=== PATIENT | female | born 1940 | race American Indian/Alaskan Native ===

== ENCOUNTER 2018-10-11 09:35 | Outpatient (CLI) | payer MEDICARE ==
--- NOTE | 2018-10-11 11:14 | Magnetic Resonance Report ---
MRI BRAIN WITHOUT CONTRAST INDICATION: Memory loss. COMPARISON: 04/20/[address] FINDINGS: Noncontrast multiplanar and multisequence MRI of the brain demonstrates normal ventricles and sulci without acute infarct, hemorrhage, mass effect or midline shift. Mild periventricular FLAIR and T2 weighted hyperintensities. No abnormal extra-axial masses or fluid collections. Normal major intracranial vascular flow voids. Normal posterior fossa structures with symmetric seventh and eighth nerve complexes. Symmetric, grossly unremarkable eye globes. Leftward nasal septal deviation. Clear imaged paranasal sinuses and mastoid air cells. Normal midline structures without evidence of Chiari malformation. Approximately 2 x 1.4 cm adenoids may be directly visualized. CONCLUSION: No acute intracranial MRI abnormality with few incidental findings, as described. Thank you for the opportunity to participate in this patient's care.
== END 2018-10-11 09:36 | disposition home or self-care (01) ==
LOC: MRI 09:35
PROVIDERS: ATTEND Psychiatry & Neurology Neurology
DX: G30.1 Alzheimer's disease with late onset (principal); I10 Essential (primary) hypertension; J45.909 Unspecified asthma, uncomplicated; Z90.710 Acquired absence of both cervix and uterus
CPT/HCPCS: 70551

== ENCOUNTER 2018-12-01 20:58 | Emergency (ER) | payer MEDICARE ==
--- NOTE | 2018-12-01 21:41 | Event Note ---
ED Screening Note Date of service: 12/01/18 Time: 21:38 ED Screening Note: 78 y/o female comes in for AMS. Patient is feel paranoid. This initial assessment/diagnostic orders/clinical plan/treatment(s) is/are subject to change based on patients health status, clinical progression and re-assessment by fellow clinical providers in the ED. Further treatment and workup at subsequent clinical providers discretion. Patient/guardian urged not to elope from the ED as their condition may be serious if not clinically assessed and managed. Initial orders include:
[2018-12-01 21:49] LABS: Basophils # (Auto) 0.1 K/mm3 (0.0-0.1); Basophils % (Auto) 1.1 % (0.0-1.8); Eosinophils # (Auto) 0.2 K/mm3 (0.0-0.4); Eosinophils % (Auto) 2.8 % (0.0-4.3); Hematocrit 34.4 % (30.3-42.9); Mean Corpuscular HGB Conc 35 % (30-34); Mean Corpuscular Volume 96 fl (79-97); Monocytes # (Auto) 0.7 K/mm3 (0.0-0.8); Monocytes % (Auto) 8.3 % (0.0-7.3); Platelet Count 251 K/mm3 (140-440); Red Blood Count 3.59 M/mm3 (3.65-5.03); Red Cell Distribution Width 14.7 % (13.2-15.2)
[2018-12-01 22:08] LABS: BUN/Creatinine Ratio 31; Blood Urea Nitrogen 28 mg/dL (7-17); Calcium 9.3 mg/dL (8.4-10.2); Hemolysis Index 10
[2018-12-01 22:29] LABS: Alanine Aminotransferase 14 units/L (7-56); Albumin 3.7 g/dL (3.9-5)
[2018-12-01 22:38] LABS: Bilirubin,Direct < 0.2 mg/dL (0-0.2)
[2018-12-01 23:31] LABS: Bilirubin,Urine NEG (Negative); Blood,Urine NEG (Negative); Color,Urine Yellow (Yellow); Hyaline Casts,Urine 2 /LPF; Mucus,Urine FEW /HPF; Protein,Urine <15 mg/dL mg/dL (Negative); Urobilinogen,Urine < 2.0 mg/dL (<2.0)
--- NOTE | 2018-12-02 01:00 | Emergency Department Report ---
ED General Adult HPI - General Chief complaint: Altered Mental Status Stated complaint: BACK PAIN, HAVING DELUSIONS Time Seen by Provider: 12/01/18 21:38 Source: family Mode of arrival: Wheelchair Limitations: Altered Mental Status, Physical Limitation - History of Present Illness Initial comments: 78 y.o. female with a history of CVA, HTN, Obesity, and atrial fibrillation presents with complaint of delusions. Family states that the patient has had the delusion that someone is inside and outside her house for the past 3 months. Patient has seen a neurologist regarding this. Today however patient was cursing and was more agitated. Vision lives by herself and sister was at [employer] and pick patient up and brought her to the emergency department for evaluation. Patient has had no fever or recent falls. Patient has had no slurred speech or focal weakness described by the family or by the patient. The patient denies any chest pain or shortness of breath at current time. - Related Data Previous Rx's Medication Instructions Recorded Last Taken Type predniSONE [Deltasone] 20 mg PO QDAY #3 tab 11/21/14 Unknown Rx Acyclovir [Zovirax Tab] 400 mg PO QID #20 tab 04/20/15 Unknown Rx Apixaban [Eliquis] 5 mg PO BID #60 tablet 09/15/17 Unknown Rx Lisinopril/Hydrochlorothiazide 1 each PO QDAY #30 tablet 09/15/17 Unknown Rx [Zestoretic 20-12.5 mg] Metoprolol [Lopressor TAB] 25 mg PO BID #60 tablet 09/15/17 Unknown Rx Ciprofloxacin HCl [Ciprofloxacin 500 mg PO Q12HR 7 Days tab 12/02/18 Unknown Rx TAB] LORazepam [Ativan] 1 mg PO TID PRN #14 tablet 12/02/18 Unknown Rx Allergies Allergy/AdvReac Type Severity Reaction Status Date / Time aspirin AdvReac Unknown Verified 11/21/14 11:18 FLU VACCINE AdvReac Unknown Uncoded 04/20/15 13:35 ED Review of Systems ROS: Stated complaint: BACK PAIN, HAVING DELUSIONS Other details as noted in HPI Constitutional: denies: chills, fever Eyes: denies: eye pain, eye discharge, vision change ENT: denies: ear pain, throat pain Respiratory: denies: cough, shortness of breath, wheezing Cardiovascular: denies: chest pain, palpitations Endocrine: no symptoms reported Gastrointestinal: denies: abdominal pain, nausea, diarrhea Genitourinary: denies: urgency, dysuria, discharge Musculoskeletal: denies: back pain, joint swelling, arthralgia Skin: denies: rash, lesions Neurological: denies: headache, weakness, paresthesias Psychiatric: denies: anxiety, depression Hematological/Lymphatic: denies: easy bleeding, easy bruising ED Past Medical Hx - Past Medical History Previous Medical History?: Yes Hx Hypertension: Yes Hx CVA: Yes Hx Diabetes: Yes Hx Asthma: Yes Hx Dementia: Yes Hx HIV: No - Surgical History Past Surgical History?: Yes Hx Cholecystectomy: Yes Additional Surgical History: tonsilectomy - Social History Smoking Status: Never Smoker Substance Use Type: None - Medications Home Medications: Home Medications Medication Instructions Recorded Confirmed Last Taken Type predniSONE [Deltasone] 20 mg PO QDAY #3 tab 11/21/14 Unknown Rx Acyclovir [Zovirax Tab] 400 mg PO QID #20 tab 04/20/15 Unknown Rx Apixaban [Eliquis] 5 mg PO BID #60 tablet 09/15/17 Unknown Rx Lisinopril/Hydrochlorothiazide 1 each PO QDAY #30 tablet 09/15/17 Unknown Rx [Zestoretic 20-12.5 mg] Metoprolol [Lopressor TAB] 25 mg PO BID #60 tablet 09/15/17 Unknown Rx Ciprofloxacin HCl [Ciprofloxacin 500 mg PO Q12HR 7 Days tab 12/02/18 Unknown Rx TAB] LORazepam [Ativan] 1 mg PO TID PRN #14 tablet 12/02/18 Unknown Rx ED Physical Exam - General Limitations: Altered Mental Status, Physical Limitation General appearance: alert, in no apparent distress - Head Head exam: Present: atraumatic, normocephalic - Eye Eye exam: Present: normal appearance - ENT ENT exam: Present: mucous membranes moist - Neck Neck exam: Present: normal inspection - Respiratory Respiratory exam: Present: normal lung sounds bilaterally. Absent: respiratory distress - Cardiovascular Cardiovascular Exam: Present: regular rate, normal rhythm. Absent: systolic murmur, diastolic murmur, rubs, gallop - GI/Abdominal GI/Abdominal exam: Present: soft, normal bowel sounds - Extremities Exam Extremities exam: Present: normal inspection - Back Exam Back exam: Present: normal inspection - Neurological Exam Neurological exam: Present: alert, CN II-XII intact, other (Oriented to person place but not to time. ( THis is patient's baseline per family)). Absent: motor sensory deficit - Psychiatric Psychiatric exam: Present: normal affect, normal mood - Skin Skin exam: Present: warm, dry, intact, normal color. Absent: rash ED Course Vital Signs 12/01/18 12/01/18 12/01/18 21:07 21:16 21:29 Temperature 98.6 F Pulse Rate 84 89 Respiratory 18 19 18 Rate Blood Pressure 147/62 147/62 113/64 O2 Sat by Pulse 98 100 97 Oximetry 12/01/18 12/01/18 12/01/18 21:30 21:46 22:00 Temperature Pulse Rate 82 102 H Respiratory 21 23 20 Rate Blood Pressure 150/53 142/53 142/53 O2 Sat by Pulse 100 97 99 Oximetry 12/01/18 12/01/18 12/01/18 22:16 22:30 22:46 Temperature Pulse Rate 92 H 99 H 98 H Respiratory 22 24 27 H Rate Blood Pressure 122/48 102/45 124/42 O2 Sat by Pulse 100 100 100 Oximetry 12/01/18 12/01/18 12/01/18 23:00 23:16 23:30 Temperature Pulse Rate 94 H 101 H 104 H Respiratory 22 19 22 Rate Blood Pressure 124/42 131/39 133/36 O2 Sat by Pulse 100 99 96 Oximetry 12/01/18 12/02/18 12/02/18 23:46 00:00 01:09 Temperature Pulse Rate 105 H 105 H Respiratory 22 22 Rate Blood Pressure 130/37 130/37 98/55 O2 Sat by Pulse 96 97 Oximetry 12/02/18 12/02/18 12/02/18 01:15 01:31 01:45 Temperature Pulse Rate Respiratory Rate Blood Pressure 98/55 108/60 106/57 O2 Sat by Pulse 97 99 98 Oximetry ED Medical Decision Making - Lab Data Result diagrams: 12/01/18 Unknown 12/01/18 21:36 - Medical Decision Making Patient is in no acute distress. Patient received a dose of Ativan while here in the emergency department and will receive this therapy to assist with her episodes on outpatient basis. Patient has a normal neurologic exam will be di scharged. Patient noted to have a mild UTI and will be discharged with ciprofloxacin therapy as well. - Differential Diagnosis UTI; Dehydration; Electrolyte Abnormality; Anemia; Critical care attestation.: If time is entered above; I have spent that time in minutes in the direct care of this critically ill patient, excluding procedure time. ED Disposition Clinical Impression: Dementia, Urinary tract infection, Hypertension Disposition: TO HOME OR SELFCARE Is pt being admited?: No Does the pt Need Aspirin: No Condition: Stable Instructions: Hypertension (ED), Dementia (ED), Urinary Tract Infection in Women (ED) Prescriptions: LORazepam [Ativan] 1 mg PO TID PRN #14 tablet PRN Reason: Agitation Ciprofloxacin HCl [Ciprofloxacin TAB] 500 mg PO Q12HR 7 Days tab Time of Disposition: 02:21 Print Language: [place]
[2018-12-02] MEDS ORDERED: ATIVAN PO ONE (01:20)
[2018-12-02 01:50] VITALS: BP 106/57
== END 2018-12-02 03:15 | disposition home or self-care (01) ==
LOC: ED 20:58
DX: F03.90 Unspecified dementia, unspecified severity, without behavioral disturbance, psychotic disturbance, mood disturbance, and anxiety (principal); N39.0 Urinary tract infection, site not specified; I10 Essential (primary) hypertension; I25.2 Old myocardial infarction; E11.9 Type 2 diabetes mellitus without complications; J45.909 Unspecified asthma, uncomplicated; Z90.49 Acquired absence of other specified parts of digestive tract; Z90.89 Acquired absence of other organs; Z79.899 Other long term (current) drug therapy; Z88.6 Allergy status to analgesic agent; Z91.09 Other allergy status, other than to drugs and biological substances
CPT/HCPCS: 36415; 80048; 80076; 81001; 85025

== ENCOUNTER 2018-12-30 10:01 | Emergency (ER) | payer MEDICARE ==
--- NOTE | 2018-12-30 11:09 | Event Note ---
ED Screening Note ED Screening Note: lower back pain since yesterday seems slightly more confused per pt family Dr. Kaye Kelly, PCP advised to be seen in the ED no fall or injury +urinary frequency/urinary urgency no V/D, fever, unexplained weight loss, no CP This initial assessment/diagnostic orders/clinical plan/treatment(s) is/are subject to change based on patients health status, clinical progression and re- assessment by fellow clinical providers in the ED. Further treatment and workup at subsequent clinical providers discretion. Patient/guardian urged not to elope from the ED as their condition may be serious if not clinically assessed and managed. Initial orders include: UA, labs
[2018-12-30 11:34] LABS: Basophils # (Auto) 0.1 K/mm3 (0.0-0.1); Basophils % (Auto) 0.9 % (0.0-1.8); Eosinophils # (Auto) 0.3 K/mm3 (0.0-0.4); Eosinophils % (Auto) 4.5 % (0.0-4.3); Hematocrit 34.2 % (30.3-42.9); Hemoglobin 11.4 gm/dl (10.1-14.3); Lymphocytes # (Auto) 1.4 K/mm3 (1.2-5.4); Lymphocytes % (Auto) 22.5 % (13.4-35.0); Mean Corpuscular HGB Conc 33 % (30-34); Mean Corpuscular Volume 99 fl (79-97); Monocytes # (Auto) 0.6 K/mm3 (0.0-0.8); Monocytes % (Auto) 8.9 % (0.0-7.3); Platelet Count 227 K/mm3 (140-440); Red Blood Count 3.47 M/mm3 (3.65-5.03); Red Cell Distribution Width 15.2 % (13.2-15.2)
[2018-12-30 11:57] LABS: Alanine Aminotransferase 14 units/L (7-56); BUN/Creatinine Ratio 24; Blood Urea Nitrogen 17 mg/dL (7-17); Calcium 9.2 mg/dL (8.4-10.2); Hemolysis Index 3
[2018-12-30 11:59] LABS: Bacteria,Urine 1+ /HPF (Negative); Bilirubin,Urine NEG (Negative); Blood,Urine NEG (Negative); Color,Urine Yellow (Yellow); Mucus,Urine 2+ /HPF; Protein,Urine <15 mg/dL mg/dL (Negative); Urobilinogen,Urine < 2.0 mg/dL (<2.0)
[2018-12-30] MEDS ORDERED: BACTRIM DS PO ONE (18:22)
[2018-12-30] MEDS ORDERED: TYLENOL/CODEINE PO ONE (18:22)
--- NOTE | 2018-12-30 18:30 | Emergency Department Report ---
ED General Adult HPI - General Chief complaint: Back Pain/Injury Stated complaint: BACK PAIN Time Seen by Provider: 12/30/18 11:06 Source: patient, family Mode of arrival: Wheelchair Limitations: No Limitations - History of Present Illness Initial comments: This is a 78-year-old female who presents to ED sister who is complaining of low back pain for the past couple days. Patient states that she did not fall or sustain any trauma or injuries. Patient denies fevers chills/shortness of breath/nausea vomiting/abdominal pain or dysuria. Patient's family member requesting resources for help with dementia. Family members stated that patient had a dementia episode yesterday. As of today patient had not had any episodes and is acting her normal self. - Related Data Previous Rx's Medication Instructions Recorded Last Taken Type predniSONE [Deltasone] 20 mg PO QDAY #3 tab 11/21/14 Unknown Rx Acyclovir [Zovirax Tab] 400 mg PO QID #20 tab 04/20/15 Unknown Rx Apixaban [Eliquis] 5 mg PO BID #60 tablet 09/15/17 Unknown Rx Lisinopril/Hydrochlorothiazide 1 each PO QDAY #30 tablet 09/15/17 Unknown Rx [Zestoretic 20-12.5 mg] Metoprolol [Lopressor TAB] 25 mg PO BID #60 tablet 09/15/17 Unknown Rx Ciprofloxacin HCl [Ciprofloxacin 500 mg PO Q12HR 7 Days tab 12/02/18 Unknown Rx TAB] LORazepam [Ativan] 1 mg PO TID PRN #14 tablet 12/02/18 Unknown Rx Acetaminophen [Tylenol] 325 mg PO Q6H #20 capsule 12/30/18 Unknown Rx Sulfamethoxazole/Trimethoprim 1 each PO BID #14 tablet 12/30/18 Unknown Rx [Bactrim DS TAB] Allergies Allergy/AdvReac Type Severity Reaction Status Date / Time aspirin AdvReac Unknown Verified 11/21/14 11:18 FLU VACCINE AdvReac Unknown Uncoded 04/20/15 13:35 ED Review of Systems ROS: Stated complaint: BACK PAIN Other details as noted in HPI Comment: All other systems reviewed and negative ED Past Medical Hx - Past Medical History Previous Medical History?: Yes Hx Hypertension: Yes Hx CVA: Yes Hx Diabetes: Yes Hx Asthma: Yes Hx Dementia: Yes Hx HIV: No - Surgical History Past Surgical History?: Yes Hx Cholecystectomy: Yes Additional Surgical History: tonsilectomy - Social History Smoking Status: Never Smoker - Medications Home Medications: Home Medications Medication Instructions Recorded Confirmed Last Taken Type predniSONE [Deltasone] 20 mg PO QDAY #3 tab 11/21/14 Unknown Rx Acyclovir [Zovirax Tab] 400 mg PO QID #20 tab 04/20/15 Unknown Rx Apixaban [Eliquis] 5 mg PO BID #60 tablet 09/15/17 Unknown Rx Lisinopril/Hydrochlorothiazide 1 each PO QDAY #30 tablet 09/15/17 Unknown Rx [Zestoretic 20-12.5 mg] Metoprolol [Lopressor TAB] 25 mg PO BID #60 tablet 09/15/17 Unknown Rx Ciprofloxacin HCl [Ciprofloxacin 500 mg PO Q12HR 7 Days tab 12/02/18 Unknown Rx TAB] LORazepam [Ativan] 1 mg PO TID PRN #14 tablet 12/02/18 Unknown Rx Acetaminophen [Tylenol] 325 mg PO Q6H #20 capsule 12/30/18 Unknown Rx Sulfamethoxazole/Trimethoprim 1 each PO BID #14 tablet 12/30/18 Unknown Rx [Bactrim DS TAB] ED Physical Exam - General Limitations: No Limitations General appearance: alert, in no apparent distress - Head Head exam: Present: atraumatic, normocephalic - Eye Eye exam: Present: normal appearance - ENT ENT exam: Present: mucous membranes moist - Neck Neck exam: Present: normal inspection - Respiratory Respiratory exam: Present: normal lung sounds bilaterally. Absent: respiratory distress - Cardiovascular Cardiovascular Exam: Present: regular rate, normal rhythm. Absent: systolic murmur, diastolic murmur, rubs, gallop - GI/Abdominal GI/Abdominal exam: Present: soft, normal bowel sounds. Absent: distended, tenderness, guarding, rebound - Extremities Exam Extremities exam: Present: normal inspection, full ROM. Absent: tenderness - Back Exam Back exam: Present: normal inspection, full ROM. Absent: tenderness, CVA tenderness (R), CVA tenderness (L) - Neurological Exam Neurological exam: Present: alert, oriented X3 - Psychiatric Psychiatric exam: Present: normal affect, normal mood - Skin Skin exam: Present: warm, dry, intact, normal color. Absent: rash ED Course Vital Signs 12/30/18 11:06 Temperature 98.3 F Pulse Rate 70 Respiratory 20 Rate Blood Pressure 120/63 O2 Sat by Pulse 100 Oximetry ED Medical Decision Making - Lab Data Result diagrams: 12/30/18 11:19 12/30/18 11:19 Laboratory Last Values WBC 6.3 K/mm3 (4.5-11.0) 12/30/18 11:19 RBC 3.47 M/mm3 (3.65-5.03) L 12/30/18 11:19 Hgb 11.4 gm/dl (10.1-14.3) 12/30/18 11:19 Hct 34.2 % (30.3-42.9) 12/30/18 11:19 MCV 99 fl (79-97) H 12/30/18 11:19 MCH 33 pg (28-32) H 12/30/18 11:19 MCHC 33 % (30-34) 12/30/18 11:19 RDW 15.2 % (13.2-15.2) 12/30/18 11:19 Plt Count 227 K/mm3 (140-440) 12/30/18 11:19 Lymph % (Auto) 22.5 % (13.4-35.0) 12/30/18 11:19 [place] % (Auto) 8.9 % (0.0-7.3) H 12/30/18 11:19 Eos % (Auto) 4.5 % (0.0-4.3) H 12/30/18 11:19 Baso % (Auto) 0.9 % (0.0-1.8) 12/30/18 11:19 Lymph # 1.4 K/mm3 (1.2-5.4) 12/30/18 11:19 [place] # 0.6 K/mm3 (0.0-0.8) 12/30/18 11:19 Eos # 0.3 K/mm3 (0.0-0.4) 12/30/18 11:19 Baso # 0.1 K/mm3 (0.0-0.1) 12/30/18 11:19 Seg Neutrophils % 63.2 % (40.0-70.0) 12/30/18 11:19 Seg Neutrophils # 4.0 K/mm3 (1.8-7.7) 12/30/18 11:19 Sodium 145 mmol/L (137-145) 12/30/18 11:19 Potassium 4.2 mmol/L (3.6-5.0) 12/30/18 11:19 Chloride 105.2 mmol/L (98-107) 12/30/18 11:19 Carbon Dioxide 29 mmol/L (22-30) 12/30/18 11:19 15 mmol/L 12/30/18 11:19 BUN 17 mg/dL (7-17) 12/30/18 11:19 0.7 mg/dL (0.7-1.2) 12/30/18 11:19 Estimated GFR > 60 ml/min 12/30/18 11:19 24 % 12/30/18 11:19 Glucose 129 mg/dL (65-100) H 12/30/18 11:19 Calcium 9.2 mg/dL (8.4-10.2) 12/30/18 11:19 0.50 mg/dL (0.1-1.2) 12/30/18 11:19 AST 15 units/L (5-40) 12/30/18 11:19 ALT 14 units/L (7-56) 12/30/18 11:19 75 units/L (35-129) 12/30/18 11:19 7.2 g/dL (6.3-8.2) 12/30/18 11:19 4.0 g/dL (3.9-5) 12/30/18 11:19 1.3 % 12/30/18 11:19 Yellow (Yellow) 12/30/18 11:24 Slightly-cloudy (Clear) 12/30/18 11:24 5.0 (5.0-7.0) 12/30/18 11:24 Ur Specific [place] 1.021 (1.003-1.030) 12/30/18 11:24 <15 mg/dl mg/dL (Negative) 12/30/18 11:24 Neg mg/dL (Negative) 12/30/18 11:24 Neg mg/dL (Negative) 12/30/18 11:24 Neg (Negative) 12/30/18 11:24 Neg (Negative) 12/30/18 11:24 Neg (Negative) 12/30/18 11:24 < 2.0 mg/dL (<2.0) 12/30/18 11:24 Ur Leukocyte Esterase Lg (Negative) 12/30/18 11:24 2.0 /HPF (0.0-6.0) 12/30/18 11:24 1.0 /HPF (0.0-6.0) 12/30/18 11:24 U Epithel Cells (Auto) 10.0 /HPF (0-13.0) 12/30/18 11:24 1+ /HPF (Negative) 12/30/18 11:24 2+ /HPF 12/30/18 11:24 - Medical Decision Making 78-year-old female presents to ED with a urinary tract infection. Discussed with patient and her sister lab findings. All labs within normal limits no sign of leukocytosis or any signs of infection other than urinalysis positive for UTI. I discussed with the family members that UTIs me treat her dementia episodes and will need to treat. Sister informed me that primary care physician as arranged by our nurse will need to come and help the patient at home with medications chores. Patient is in no acute or respiratory distress. Patient is sitting comfortably in the bed. Patient is ambulatory without any problems she has no neurological deficit. Discussed with patient and family member to make sure that patient finishes all antibiotics to treat the UTI. Critical care attestation.: If time is entered above; I have spent that time in minutes in the direct care of this critically ill patient, excluding procedure time. ED Disposition Clinical Impression: UTI (urinary tract infection) Disposition: - TO HOME OR SELFCARE Is pt being admited?: No Does the pt Need Aspirin: No Condition: Stable Instructions: Urinary Tract Infection in Women (ED) Additional Instructions: Make sure to follow up with the primary care physician as discussed. Take all your medications as you've been prescribed. If you have any worsening symptoms or develop new symptoms please return to ED immediately. Prescriptions: Sulfamethoxazole/Trimethoprim [Bactrim DS TAB] 1 each PO BID #14 tablet Acetaminophen [Tylenol] 325 mg PO Q6H #20 capsule Referrals: ROSA ISELA ECHEVERRIA MD [Primary Care Provider] - 3-5 Days Time of Disposition: 18:51
[2018-12-30 19:12] VITALS: BP 132/77
== END 2018-12-30 19:13 | disposition home or self-care (01) ==
LOC: ED 10:01
DX: N39.0 Urinary tract infection, site not specified (principal); I10 Essential (primary) hypertension; E11.9 Type 2 diabetes mellitus without complications; J45.909 Unspecified asthma, uncomplicated; F03.90 Unspecified dementia, unspecified severity, without behavioral disturbance, psychotic disturbance, mood disturbance, and anxiety; Z86.73 Personal history of transient ischemic attack (TIA), and cerebral infarction without residual deficits; Z88.6 Allergy status to analgesic agent; Z79.899 Other long term (current) drug therapy; Z88.7 Allergy status to serum and vaccine; Z90.49 Acquired absence of other specified parts of digestive tract; Z90.89 Acquired absence of other organs
CPT/HCPCS: 36415; 80053; 81001; 85025; 99283

== ENCOUNTER 2019-03-30 09:40 | Emergency (ER) | payer MEDICARE ==
[2019-03-30 10:31] LABS: Bacteria,Urine 1+ /HPF (Negative); Bilirubin,Urine NEG (Negative); Blood,Urine NEG (Negative); Color,Urine Yellow (Yellow); Mucus,Urine 1+ /HPF; Protein,Urine <15 mg/dL mg/dL (Negative); Urobilinogen,Urine < 2.0 mg/dL (<2.0)
[2019-03-30 10:37] LABS: Amphetamine Screen,Urine PRESUMPTIVE NEGATIVE; Benzodiazepines Screen,Urine PRESUMPTIVE NEGATIVE; Cannabinoid Screen,Urine PRESUMPTIVE NEGATIVE; Cocaine Screen,Urine PRESUMPTIVE NEGATIVE; Methadone Screen,Urine PRESUMPTIVE NEGATIVE; Opiate Screen,Urine PRESUMPTIVE NEGATIVE
[2019-03-30 10:42] LABS: Hematocrit 38.1 % (30.3-42.9); Hemoglobin 12.5 gm/dl (10.1-14.3); Mean Corpuscular HGB Conc 33 % (30-34); Mean Corpuscular Volume 97 fl (79-97); Platelet Count 298 K/mm3 (140-440); Red Blood Count 3.92 M/mm3 (3.65-5.03); Red Cell Distribution Width 13.8 % (13.2-15.2)
--- NOTE | 2019-03-30 10:56 | Emergency Department Report ---
ED General Adult HPI - General Chief complaint: Medical Clearance Stated complaint: HALLUCINATIONS Time Seen by Provider: 03/30/19 10:10 Source: patient, EMS (verbal report received from emergency medical services. EMS documentation not available at time of chart dictation ), RN notes reviewed, old records reviewed Mode of arrival: Ambulatory Limitations: Other (dementia) - History of Present Illness Initial comments: The patient is a pleasant 78-year-old female. We do not know who her primary care doctor is Past medical history includes stroke, hypertension, obesity, A. fib, on systemic anticoagulation, had MRI of the brain at this hospital September 2018, negative for acute findings, chronic findings noted The patient is brought to the hospital by emergency medical services. Apparently, the patient lives by herself, and became preoccupied and concerned that people were having sex in her bed, and stealing her clothing. Apparently, she lives by herself, at her apartment was quite disheveled. Emergency medical services were contacted after the police evaluated the patient's apartment. As per verbal report from EMS, patient's apartment was not found to have any individuals fornicating as per evaluation from the police. Indeed, as per EMS report, no other individuals were found in the apartment, thus activation of emergency medical services. Apparently, the patient's been having some memory issues over the past few months, they have a presumptive diagnosis of dementia. The patient denies physical pain. She denies access to guns and to firearms. She does not want to harm herself or harm other people. -: Gradual, month(s) Improves with: none Worsens with: none - Related Data Home Medications Medication Instructions Recorded Confirmed Last Taken Donepezil [Aricept] 5 mg PO QHS 03/30/19 03/30/19 Unknown Memantine HCl/Donepezil HCl 1 each PO QHS 03/30/19 03/30/19 Unknown [Namzaric 7 mg-10 mg Capsule] Simvastatin 10 mg PO QHS 03/30/19 03/30/19 Unknown Sitagliptin Phos/Metformin HCl 1 tab PO QHS 03/30/19 03/30/19 Unknown [Janumet XR 100-1,000 mg] Venlafaxine Xr [Effexor Xr] 75 mg PO BID 03/30/19 03/30/19 Unknown amLODIPine [Norvasc] 5 mg PO DAILY 03/30/19 03/30/19 Unknown Previous Rx's Medication Instructions Recorded Last Taken Type Metoprolol [Lopressor TAB] 25 mg PO BID #60 tablet 09/15/17 Unknown Rx LORazepam [Ativan] 1 mg PO TID PRN #14 tablet 12/02/18 Unknown Rx Ofelia Root [Ofelia] 250 mg PO QID PRN #30 capsule 03/30/19 Unknown Rx Nitrofurantoin [place]/M-Cryst 100 mg PO Q12HR #13 capsule 03/30/19 Unknown Rx [Macrobid CAP] Allergies Allergy/AdvReac Type Severity Reaction Status Date / Time aspirin AdvReac Unknown Verified 03/30/19 09:58 FLU VACCINE AdvReac Unknown Uncoded 04/20/15 13:35 ED Review of Systems ROS: Stated complaint: HALLUCINATIONS Other details as noted in HPI Constitutional: denies: fever Eyes: denies: eye discharge ENT: denies: congestion Respiratory: denies: wheezing Cardiovascular: denies: chest pain, syncope Gastrointestinal: denies: abdominal pain Genitourinary: denies: dysuria Musculoskeletal: denies: back pain Neurological: denies: headache Psychiatric: visual hallucinations. denies: homicidal thoughts, suicidal thoughts ED Past Medical Hx - Past Medical History Hx Hypertension: Yes Hx CVA: Yes Hx Diabetes: Yes Hx Asthma: Yes Hx Dementia: Yes Hx HIV: No - Surgical History Hx Cholecystectomy: Yes Additional Surgical History: tonsilectomy - Social History Smoking Status: Never Smoker Substance Use Type: None - Medications Home Medications: Home Medications Medication Instructions Recorded Confirmed Last Taken Type Metoprolol [Lopressor TAB] 25 mg PO BID #60 tablet 09/15/17 03/30/19 Unknown Rx LORazepam [Ativan] 1 mg PO TID PRN #14 tablet 12/02/18 03/30/19 Unknown Rx Donepezil [Aricept] 5 mg PO QHS 03/30/19 03/30/19 Unknown History Ofelia Root [Ofelia] 250 mg PO QID PRN #30 capsule 03/30/19 Unknown Rx Memantine HCl/Donepezil HCl 1 each PO QHS 03/30/19 03/30/19 Unknown History [Namzaric 7 mg-10 mg Capsule] Nitrofurantoin [place]/M-Cryst 100 mg PO Q12HR #13 capsule 03/30/19 Unknown Rx [Macrobid CAP] Simvastatin 10 mg PO QHS 03/30/19 03/30/19 Unknown History Sitagliptin Phos/Metformin HCl 1 tab PO QHS 03/30/19 03/30/19 Unknown History [Janumet XR 100-1,000 mg] Venlafaxine Xr [Effexor Xr] 75 mg PO BID 03/30/19 03/30/19 Unknown History amLODIPine [Norvasc] 5 mg PO DAILY 03/30/19 03/30/19 Unknown History ED Physical Exam - General Limitations: No Limitations General appearance: alert, in no apparent distress - Head Head exam: Present: atraumatic, normocephalic - Eye Eye exam: Present: normal appearance, EOMI, other (visual acuity intact to finger counting and color perception at close distance. Left cornea appears to be opacified secondary to cataract.). Absent: nystagmus - ENT ENT exam: Present: normal exam, normal orophraynx, mucous membranes moist, normal external ear exam - Neck Neck exam: Present: normal inspection, full ROM. Absent: tenderness, meningismus - Respiratory Respiratory exam: Present: normal lung sounds bilaterally. Absent: respiratory distress, wheezes, rales, rhonchi, stridor, decreased breath sounds - Cardiovascular Cardiovascular Exam: Present: regular rate, irregular rhythm, normal heart sounds. Absent: bradycardia, tachycardia, systolic murmur, diastolic murmur, rubs, gallop - GI/Abdominal GI/Abdominal exam: Present: soft. Absent: distended, tenderness, guarding, rebound, rigid, pulsatile mass - Extremities Exam Extremities exam: Present: normal inspection, full ROM, other (2+ pulses noted in the bilateral upper and lower extremities. There is no palpable cord. negative Homans sign. Muscular compartments are soft. The pelvis is stable.). Absent: calf tenderness - Back Exam Back exam: Present: normal inspection, full ROM. Absent: tenderness, CVA tenderness (R), CVA tenderness (L), paraspinal tenderness, vertebral tenderness - Neurological Exam Neurological exam: Present: alert (patient alerts to name, location.), normal gait, other (there is no facial droop. The tongue is midline. Extraocular movements are intact bilaterally. 5/5 strength bilateral upper and lower extremities.) - Psychiatric Psychiatric exam: Absent: homicidal ideation, suicidal ideation - Skin Skin exam: Present: warm, dry, intact, normal color. Absent: rash ED Course Vital Signs 03/30/19 03/30/19 03/30/19 09:58 11:54 11:56 Temperature 98.5 F Pulse Rate 72 62 62 Respiratory 18 18 Rate Blood Pressure 114/63 116/62 Blood Pressure 116/62 [Right] O2 Sat by Pulse 100 Oximetry 03/30/19 12:01 Temperature Pulse Rate 62 Respiratory Rate Blood Pressure 116/62 Blood Pressure [Right] O2 Sat by Pulse Oximetry - Reevaluation(s) Reevaluation #1: 03/30/19 10:56 Torrential diagnosis, including but not limited to: Dementia, urinary tract infection, electrolyte derangement, thyroid derangement, intracranial hemorrhage Assessment and plan: 78-year-old female with nonspecific psychiatric symptoms reportedly 4 months, who is pleasant, calm and cooperative, afebrile with reassuring vital signs, with a nonfocal motor examination. Suspect dementia. urinanalysis suggestive of probable urinary tract infection. EKG unchanged from prior. Screening laboratory studies pending. Noncontrast CT scan of brain is pending. Case management and psychiatry consult have been requested. Reevaluation #2: 03/30/19 13:30 Patient in no acute distress. CT scan of the brain unremarkable. Evaluated by case management and psychiatry team. accepted to the geriatric psychiatry floor. At this point in time, patient does not appear to have an immediate medical contraindication to psychiatric admission, evaluation, consultation and placement. She'll be discharged with Macrobid antibiotic. As needed Ofelia for nausea and vomiting. Reevaluation #3: 03/30/19 13:33 Nursing team states they have reconcile the patient's medications as provided by the list that the family supplied. Patient had an episode of vomiting after eating food, this is now resolved, she was able to tolerate oral medications without difficulty. ED Medical Decision Making - Lab Data Result diagrams: 03/30/19 10:22 03/30/19 10:22 Vital Signs 03/30/19 09:58 Temperature 98.5 F Pulse Rate 72 Respiratory 18 Rate Blood Pressure 114/63 O2 Sat by Pulse 100 Oximetry Lab Results 03/30/19 03/30/19 03/30/19 Range/Units 10:08 10:08 10:22 WBC 11.5 H (4.5-11.0) K/mm3 RBC 3.92 (3.65-5.03) M/mm3 Hgb 12.5 (10.1-14.3) gm/dl Hct 38.1 (30.3-42.9) % MCV 97 (79-97) fl MCH 32 (28-32) pg MCHC 33 (30-34) % RDW 13.8 (13.2-15.2) % Plt Count 298 (140-440) K/mm3 Urine Color Yellow (Yellow) Urine Turbidity Clear (Clear) Urine pH 5.0 (5.0-7.0) Ur Specific [place] 1.019 (1.003-1.030) Urine Protein <15 mg/dl (Negative) mg/dL Urine Glucose (UA) Neg (Negative) mg/dL Urine Ketones Neg (Negative) mg/dL Urine Blood Neg (Negative) Urine Nitrite Neg (Negative) Urine Bilirubin Neg (Negative) Urine Urobilinogen < 2.0 (<2.0) mg/dL Ur Leukocyte Esterase Lg (Negative) Urine WBC (Auto) 3.0 (0.0-6.0) /HPF Urine RBC (Auto) 4.0 (0.0-6.0) /HPF U Epithel Cells (Auto) 2.0 (0-13.0) /HPF Urine Bacteria (Auto) 1+ (Negative) /HPF Urine Mucus 1+ /HPF Urine Opiates Screen Presumptive negative Urine Methadone Screen Presumptive negative Ur Barbiturates Screen Presumptive negative Ur Phencyclidine Scrn Presumptive negative Ur Amphetamines Screen Presumptive negative U Benzodiazepines Scrn Presumptive negative Urine Cocaine Screen Presumptive negative U Marijuana (THC) Screen Presumptive negative Drugs of Abuse Note Disclamer - EKG Data -: EKG Interpreted by Wi - EKG Data 03/30/19 10:57 The EKG shows motion artifact. There is A. fib, normal axis, QTC prolonged, low voltage, poor R-wave progression, QTC prolonged, the EKG is abnormal, there is no ST elevation myocardial infarction. The EKG today is unchanged from prior EKGs. - Radiology Data Radiology results: pending, report reviewed, image reviewed ct head negative Critical care attestation.: If time is entered above; I have spent that time in minutes in the direct care of this critically ill patient, excluding procedure time. ED Disposition Clinical Impression: Medical clearance for psychiatric admission, Dementia, History of hallucinations Disposition: [id number]/TX-65 PSY HOSP/PSY UNIT Is pt being admited?: No Does the pt Need Aspirin: No Condition: Good Additional Instructions: Take the Ofelia medication as needed for nausea and vomiting. Advance diet as tolerated. Take the Macrobid antibiotic as directed. Recommend follow-up with the medical doctor in 7-10 days. Return to the emergency room right away with p rojectile vomiting, change in mental status, confusion, inability to tolerate liquid feeds, fevers, chills, lethargy, irritability, change in mental status new, worsening or different symptoms not present on the initial emergency room evaluation. Referrals: REBECCA VASQUEZ MD [Primary Care Provider] - 7-10 days
[2019-03-30] MEDS ORDERED: NITROFURANTOIN MONOHYD/M-CRYST 100 MG CAP PO SCH (11:00)
[2019-03-30 11:01] LABS: BUN/Creatinine Ratio 18; Blood Urea Nitrogen 14 mg/dL (7-17); Calcium 9.2 mg/dL (8.4-10.2); Hemolysis Index 17
--- NOTE | 2019-03-30 11:26 | Cat Scan Report ---
CT BRAIN: 03/30/2019 INDICATION / CLINICAL INFORMATION: hallucinations afib. COMPARISON: MRI brain 10/11/2018 FINDINGS: BRAIN/INTRACRANIAL STRUCTURES: Unenhanced MR images of the brain demonstrate no evidence of acute int racranial abnormality. Ventricles and sulci are normal in size and shape for a patient of this age. There is no CT evidence of acute ischemic injury, hemorrhage, or mass. There are no abnormal extra-ax ial fluid collections. Overall, there is been no definite change when compared to the prior MRI from 10/11/2018. EXTRACRANIAL STRUCTURES: Unremarkable. IMPRESSION: No acute abnormality. All CT scans at this location are performed using dose reduction to ALARA by means of automated expos ure control. Signer Name: Bladimir Magallanes MD Signed: 03/30/2019 11:22 AM Workstation Name: [id number]
[2019-03-30] MEDS ORDERED: LORazepam 1 MG TAB PO PRN (11:38)
[2019-03-30 11:54] VITALS: BP 116/62
[2019-03-30] MEDS: VENLAFAXINE XR 75 MG CAP PO SCH ×2 (11:57→12:08)
[2019-03-30] MEDS ORDERED: METOPROLOL TARTRATE 25 MG TAB PO SCH (12:00)
[2019-03-30] MEDS ORDERED: amLODIPine 5 MG TAB PO SCH (12:00)
[2019-03-30 12:02] LABS: Alanine Aminotransferase 19 units/L (7-56); Albumin 3.8 g/dL (3.9-5); Bilirubin,Direct < 0.2 mg/dL (0-0.2)
[2019-03-30] MEDS ORDERED: ONDANSETRON 4 MG ODT TAB ONE (13:31)
[2019-03-30] MEDS ORDERED: ONDANSETRON 4 MG ODT TAB PO ONE (13:35)
[2019-03-30] MEDS ORDERED: PRAVASTATIN 20 MG TAB PO SCH (22:00)
[2019-03-30] MEDS ORDERED: MEMANTINE 5 MG TAB PO SCH (22:00)
[2019-03-30] MEDS ORDERED: DONEPEZIL 10 MG TAB PO SCH (22:00)
[2019-03-30] MEDS ORDERED: METFORMIN HCL PO SCH (22:00)
[2019-03-30] MEDS ORDERED: LINAGLIPTIN 5 MG TAB PO SCH (22:00)
[2019-03-30] MEDS ORDERED: metFORMIN XR 500MG TAB PO SCH (22:00)
[2019-03-30] MEDS ORDERED: DONEPEZIL HCL PO SCH (22:00)
[2019-03-30] MEDS ORDERED: NON-FORMULARY EACH (Simvastatin [Simvastatin] 10 MG) PO SCH (22:00)
[2019-03-30] MEDS ORDERED: MEMANTINE HCL PO SCH (22:00)
[2019-03-30] MEDS ORDERED: SITAGLIPTIN PHOS PO SCH (22:00)
== END 2019-03-30 15:17 ==
LOC: ED 09:40
DX: F03.90 Unspecified dementia, unspecified severity, without behavioral disturbance, psychotic disturbance, mood disturbance, and anxiety (principal); E11.9 Type 2 diabetes mellitus without complications; J45.909 Unspecified asthma, uncomplicated; Z86.73 Personal history of transient ischemic attack (TIA), and cerebral infarction without residual deficits; Z98.890 Other specified postprocedural states; Z79.899 Other long term (current) drug therapy; Z88.6 Allergy status to analgesic agent
CPT/HCPCS: 36415; 70450; 80048; 80076; 80307; 80320; 81001; 84439; 84443; 85027; 93005; 93010; A9270-GY; G0480; Q0162

== ENCOUNTER 2019-03-30 14:05 | Inpatient (IN) | payer MEDICARE ==
[2019-03-30] MEDS ORDERED: ZIPRASIDONE MESYLATE 20 MG VIAL IM PRN (14:46)
[2019-03-30] MEDS ORDERED: traZODone 50 MG TAB PO PRN (14:46)
[2019-03-30 20:13] LABS: Chol/HDL Ratio 3.7 %
[2019-03-30] MEDS ORDERED: METFORMIN HCL PO SCH (22:00)
[2019-03-30] MEDS: MELATONIN 5 MG TAB PO SCH (22:00)
[2019-03-30] MEDS ORDERED: SITAGLIPTIN PHOS PO SCH (22:00)
[2019-03-30] MEDS ORDERED: NON-FORMULARY EACH (Simvastatin [Simvastatin] 10 MG) PO SCH (22:00)
[2019-03-30] MEDS: clonazePAM 0.5 MG TAB PO SCH (22:00)
[2019-03-30] MEDS ORDERED: AMOXICILLIN PO SCH (22:00)
[2019-03-30] MEDS ORDERED: CLAVULANATE PO SCH (22:00)
[2019-03-30] MEDS: traZODone 50 MG TAB PO SCH (22:01)
[2019-03-30] MEDS: METOPROLOL TARTRATE 25 MG TAB PO SCH (22:01)
[2019-03-30] MEDS: PRAVASTATIN 20 MG TAB PO SCH (22:02)
[2019-03-30] MEDS: VENLAFAXINE XR 75 MG CAP PO SCH (22:02)
[2019-03-30] MEDS: metFORMIN XR 500MG TAB PO SCH (22:03)
[2019-03-30] MEDS: LINAGLIPTIN 5 MG TAB PO SCH (22:04)
[2019-03-30] MEDS: NITROFURANTOIN MONOHYD/M-CRYST 100 MG CAP PO SCH (22:30)
--- NOTE | 2019-03-31 09:06 | Consultation ---
History of Present Illness - Reason for Consult Consult date: 03/31/19 Medical Mx - History of Present Illness Patient is a poor historian and unable to provide details history. Per [facility] record and staff, patient had called the police on herself and reported people are in her house eating her food and drinking her juice. patient has hx of dementia, HTN, DM, HLD. patient was brought to hospital and admitted to geripsych unit for further assessment. Hospitalist service ask to asees the patient for medical clearance. Patient denies any chest pain, SOB - appears confused and history is very limited. Past History Past Medical History: diabetes, hyperthyroidism, hyperlipidemia, other (dementia) Past Surgical History: Other (no history in the chart) Social history: other (unknown) Family history: other (unknown) Medications and Allergies Allergies Allergy/AdvReac Type Severity Reaction Status Date / Time aspirin AdvReac Unknown Verified 03/30/19 09:58 FLU VACCINE AdvReac Unknown Uncoded 04/20/15 13:35 Home Medications Medication Instructions Recorded Confirmed Last Taken Type Metoprolol [Lopressor TAB] 25 mg PO BID #60 tablet 09/15/17 03/30/19 Unknown Rx Amoxicillin/Potassium Clav 1 tab PO BID 03/30/19 03/31/19 Unknown History [Augmentin XR 1000MG 12HR] Azilsartan Med/Chlorthalidone 1 tab PO DAILY 03/30/19 03/31/19 Unknown History [Edarbyclor 40-12.5 mg Tablet] Azilsartan Med/Chlorthalidone 1 tab PO QDAY 03/30/19 03/31/19 Unknown History [Edarbyclor 40-12.5 mg Tablet] Donepezil [Aricept] 5 mg PO QHS 03/30/19 03/30/19 Unknown History Ofelia Root [Ofelia] 250 mg PO QID PRN #30 capsule 03/30/19 03/30/19 Unknown Rx Memantine HCl/Donepezil HCl 1 each PO QHS 03/30/19 03/30/19 Unknown History [Namzaric 7 mg-10 mg Capsule] Nitrofurantoin [place]/M-Cryst 100 mg PO Q12HR #13 capsule 03/30/19 03/30/19 03/30/19 Rx [Macrobid CAP] Potassium Chloride 10 meq PO DAILY 03/30/19 03/31/19 Unknown History Simvastatin 10 mg PO QHS 03/30/19 03/30/19 Unknown History Sitagliptin Phos/Metformin HCl 1 tab PO QHS 03/30/19 03/30/19 Unknown History [Janumet XR 100-1,000 mg] Venlafaxine Xr [Effexor XR] 75 mg PO BID 03/30/19 03/30/19 Unknown History Vit B12/Levomefolate/Vit B6/B2 1 tab PO DAILY 03/30/19 03/31/19 Unknown History [Cerefolin Caplet] amLODIPine 5 mg PO DAILY 03/30/19 03/30/19 Unknown History Melatonin [Melatonin 5MG TAB] 5 mg PO QHS #30 tablet 04/02/19 Unknown Rx clonazePAM [KlonoPIN] 0.25 mg PO BID #30 tablet 04/02/19 Unknown Rx traZODone [Desyrel] 50 mg PO QHS PRN #30 tablet 04/02/19 Unknown Rx Active Meds: Active Medications Amlodipine Besylate (Amlodipine) 5 mg PO DAILY [facility] Chlorthalidone (Thalitone) 12.5 mg PO QDAY [facility] Clonazepam (Klonopin) 0.5 mg PO BID [facility] Last Admin: 03/30/19 22:00 Dose: 0.5 mg Documented by: Linagliptin (Tradjenta) 5 mg PO [facility] Last Admin: 03/30/19 22:04 Dose: 5 mg Documented by: Losartan Potassium (Cozaar) 50 mg PO QDAY [facility] Melatonin (Melatonin) 5 mg PO QHS [facility] Last Admin: 03/30/19 22:00 Dose: 5 mg Documented by: Metformin HCl (Glucophage Xr) 1,000 mg PO [facility] Last Admin: 03/30/19 22:03 Dose: 1,000 mg Documented by: Metoprolol Tartrate (Metoprolol) 25 mg PO BID [facility] Last Admin: 03/30/19 22:01 Dose: 25 mg Documented by: Miscellaneous Medication (Amoxicillin/Potassium Clav [Augmentin Xr 1000mg 12hr]) 1 tab PO BID [facility] Nitrofurantoin Macrocrystals (Macrobid) 100 mg PO Q12HR [facility] Last Admin: 03/30/19 22:30 Dose: 100 mg Documented by: Potassium Chloride (K-Dur) 10 meq PO QDAY [facility] Pravastatin Sodium (Pravachol) 20 mg PO QHS [facility] Last Admin: 03/30/19 22:02 Dose: 20 mg Documented by: Thiamine HCl (Vitamin B-1) 100 mg PO QDAY [facility] Trazodone HCl (Desyrel) 50 mg PO QHS [facility] Last Admin: 03/30/19 22:01 Dose: 50 mg Documented by: Trazodone HCl (Desyrel) 50 mg PO QHS PRN PRN Reason: insomnia Venlafaxine HCl (Effexor Xr) 75 mg PO BID [facility] Last Admin: 03/30/19 22:02 Dose: 75 mg Documented by: Ziprasidone (Geodon) 10 mg IM Q4H PRN PRN Reason: Agitation Review of Systems ROS unobtainable: due to mental status Exam - Constitutional Vitals: Temp Pulse Resp BP Pulse Ox 97.7 F 73 18 148/81 95 03/31/19 01:57 03/31/19 01:57 03/31/19 01:57 03/31/19 01:57 03/31/19 01:57 General appearance: Present: no acute distress, obese - EENT Eyes: Present: PERRL ENT: hearing intact, clear oral mucosa - Neck Neck: Present: supple, normal ROM - Respiratory Respiratory effort: normal Respiratory: bilateral: CTA - Cardiovascular Heart Sounds: Present: S1 & S2. Absent: rub, click - Extremities Extremities: pulses symmetrical, No edema Peripheral Pulses: within normal limits - Abdominal General gastrointestinal: Present: soft, non-tender, non-distended, normal bowel sounds - Integumentary Integumentary: Present: clear, warm, dry - Musculoskeletal Musculoskeletal: strength equal bilaterally - Psychiatric Psychiatric: no appropriate mood/affect, no intact judgment & insight - Neurologic Neurologic: CNII-XII intact, moves all extremities Results - Labs CBC & Chem 7: 03/31/19 19:14 03/31/19 19:14 Labs: Abnormal lab results 03/30/19 03/30/19 03/30/19 Range/Units 16:57 19:35 19:35 POC Glucose 151 H (70-105) Hemoglobin A1c 7.1 H (4-6) % Triglycerides 213 H (2-149) mg/dL 03/31/19 Range/Units 06:51 POC Glucose 138 H (70-105) Hemoglobin A1c (4-6) % Triglycerides (2-149) mg/dL Assessment and Plan 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
[2019-03-31] MEDS: THIAMINE 100 MG TAB PO SCH (09:28)
[2019-03-31] MEDS: amLODIPine 5 MG TAB PO SCH (09:29)
[2019-03-31] MEDS: METOPROLOL TARTRATE 25 MG TAB PO SCH (09:29)
[2019-03-31] MEDS: clonazePAM 0.5 MG TAB PO SCH ×2 (09:29→21:19)
[2019-03-31] MEDS: VENLAFAXINE XR 75 MG CAP PO SCH ×2 (09:30→21:18)
[2019-03-31] MEDS ORDERED: LOSARTAN 50 MG TAB PO SCH (10:00)
[2019-03-31] MEDS ORDERED: VIT B6 PO SCH (10:00)
[2019-03-31] MEDS ORDERED: AZILSARTAN MED PO SCH ×2 (10:00)
[2019-03-31] MEDS ORDERED: VIT B12 PO SCH (10:00)
[2019-03-31] MEDS ORDERED: B2 PO SCH (10:00)
[2019-03-31] MEDS ORDERED: CHLORTHALIDONE PO SCH ×2 (10:00)
[2019-03-31] MEDS ORDERED: LEVOMEFOLATE PO SCH (10:00)
[2019-03-31] MEDS ORDERED: NON-FORMULARY EACH (Potassium Chloride [Potassium Chloride] 10 MEQ) PO SCH (10:00)
[2019-03-31] MEDS: POTASSIUM CHLORIDE ER 10 MEQ TAB PO SCH (11:10)
[2019-03-31] MEDS: NITROFURANTOIN MONOHYD/M-CRYST 100 MG CAP PO SCH ×2 (11:10→21:19)
[2019-03-31] MEDS: CHLORTHALIDONE 25 MG TAB PO SCH (11:10)
--- NOTE | 2019-03-31 11:20 | History and Physical Report ---
GP History & Physical - History of Present Illness Date of admission: 03/30/19 Date of Examination: 03/31/19 Reason for Admission: Danger to self Chief Complaint: Hallucinations History of Present Illness: per nurse to nurse, patient had called the police on herself and reported people are in her house eating her food and drinking her juice. patient has hx of dementia. During interview, the patient told me her "daughter brought her to the hospital because she got sick." Legal Status: Voluntary Reaction to Hospitalization: Accepting Medications and Allergies Allergies Allergy/AdvReac Type Severity Reaction Status Date / Time aspirin AdvReac Unknown Verified 03/30/19 09:58 FLU VACCINE AdvReac Unknown Uncoded 04/20/15 13:35 Home Medications Medication Instructions Recorded Confirmed Last Taken Type Metoprolol [Lopressor TAB] 25 mg PO BID #60 tablet 09/15/17 03/30/19 Unknown Rx LORazepam [Ativan] 1 mg PO TID PRN #14 tablet 12/02/18 03/30/19 Unknown Rx Amoxicillin/Potassium Clav 1 tab PO BID 03/30/19 03/31/19 Unknown History [Augmentin XR 1000MG 12HR] Azilsartan Med/Chlorthalidone 1 tab PO DAILY 03/30/19 03/31/19 Unknown History [Edarbyclor 40-12.5 mg Tablet] Azilsartan Med/Chlorthalidone 1 tab PO QDAY 03/30/19 03/31/19 Unknown History [Edarbyclor 40-12.5 mg Tablet] Donepezil [Aricept] 5 mg PO QHS 03/30/19 03/30/19 Unknown History Ofelia Root [Ofelia] 250 mg PO QID PRN #30 capsule 03/30/19 03/30/19 Unknown Rx Memantine HCl/Donepezil HCl 1 each PO QHS 03/30/19 03/30/19 Unknown History [Namzaric 7 mg-10 mg Capsule] Nitrofurantoin [place]/M-Cryst 100 mg PO Q12HR #13 capsule 03/30/19 03/30/19 03/30/19 Rx [Macrobid CAP] Potassium Chloride 10 meq PO DAILY 03/30/19 03/31/19 Unknown History Simvastatin 10 mg PO QHS 03/30/19 03/30/19 Unknown History Sitagliptin Phos/Metformin HCl 1 tab PO QHS 03/30/19 03/30/19 Unknown History [Janumet XR 100-1,000 mg] Venlafaxine Xr [Effexor Xr] 75 mg PO BID 03/30/19 03/30/19 Unknown History Vit B12/Levomefolate/Vit B6/B2 1 tab PO DAILY 03/30/19 03/31/19 Unknown History [Cerefolin Caplet] amLODIPine [Norvasc] 5 mg PO DAILY 03/30/19 03/30/19 Unknown History Active Meds: Active Medications Amlodipine Besylate (Amlodipine) 5 mg PO DAILY [facility] Last Admin: 03/31/19 09:29 Dose: Not Given Documented by: Amoxicillin/Clavulanate Potassium (Augmentin 500 Mg) 2 each PO BID [facility] Chlorthalidone (Thalitone) 12.5 mg PO QDAY [facility] Last Admin: 03/31/19 11:10 Dose: 12.5 mg Documented by: Clonazepam (Klonopin) 0.5 mg PO BID [facility] Last Admin: 03/31/19 09:29 Dose: 0.5 mg Documented by: Linagliptin (Tradjenta) 5 mg PO [facility] Last Admin: 03/30/19 22:04 Dose: 5 mg Documented by: Losartan Potassium (Cozaar) 50 mg PO QDAY [facility] Last Admin: 03/31/19 09:28 Dose: Not Given Documented by: Melatonin (Melatonin) 5 mg PO QHS [facility] Last Admin: 03/30/19 22:00 Dose: 5 mg Documented by: Metformin HCl (Glucophage Xr) 1,000 mg PO [facility] Last Admin: 03/30/19 22:03 Dose: 1,000 mg Documented by: Metoprolol Tartrate (Metoprolol) 25 mg PO BID [facility] Last Admin: 03/31/19 09:29 Dose: 25 mg Documented by: Nitrofurantoin Macrocrystals (Macrobid) 100 mg PO Q12HR [facility] Last Admin: 03/31/19 11:10 Dose: 100 mg Documented by: Potassium Chloride (K-Dur) 10 meq PO QDAY [facility] Last Admin: 03/31/19 11:10 Dose: 10 meq Documented by: Pravastatin Sodium (Pravachol) 20 mg PO QHS [facility] Last Admin: 03/30/19 22:02 Dose: 20 mg Documented by: Thiamine HCl (Vitamin B-1) 100 mg PO QDAY [facility] Last Admin: 03/31/19 09:28 Dose: 100 mg Documented by: Trazodone HCl (Desyrel) 50 mg PO QHS [facility] Last Admin: 03/30/19 22:01 Dose: 50 mg Documented by: Trazodone HCl (Desyrel) 50 mg PO QHS PRN PRN Reason: insomnia Venlafaxine HCl (Effexor Xr) 75 mg PO BID [facility] Last Admin: 03/31/19 09:30 Dose: 75 mg Documented by: Ziprasidone (Geodon) 10 mg IM Q4H PRN PRN Reason: Agitation Substance History - Substance History Alcohol Use: No (The patient denies any ETOH use) Past psychiatric history - Past Medical History Past Medical History: diabetes, hypertension - past Psychiatric treatment and history psychiatric treatment history: The patient is a poor historian. She denies any psychiatric history. - Social History Social history: single, Lives alone Review of Systems All systems: negative Results - Results Labs/Vitals: Laboratory Last Values POC Glucose 138 (70-105) H 03/31/19 06:51 Hemoglobin A1c 7.1 % (4-6) H 03/30/19 19:35 Triglycerides 213 mg/dL (2-149) H 03/30/19 19:35 Cholesterol 174 mg/dL (50-199) 03/30/19 19:35 LDL Cholesterol Direct 73 mg/dL (50-130) 03/30/19 19:35 HDL Cholesterol 47 mg/dL (40-59) 03/30/19 19:35 Cholesterol/HDL Ratio 3.70 % 03/30/19 19:35 Last Vital Signs Temp 98.7 F 03/31/19 08:59 Pulse 62 03/31/19 09:29 Resp 18 03/31/19 01:57 BP 90/51 03/31/19 09:29 Pulse Ox 95 03/31/19 01:57 Physical Examination - Physical Exam Narrative exam: PAST PSYCHIATRIC HISTORY: Diagnoses: Suicide attempts or Self-harm behavior Prior psychiatric hospitalizations Substance Abuse history: Previous psychiatric medications tried: Outpatient treatment: PAST MEDICAL HISTORY: HTN, DM (per nurse note) Family Psychiatric History None reported or documented SOCIAL HISTORY Marital Status: Single Living Arrangements: Alone, but says her children and sister come to see about her Employment Status: Disabled Access to guns/weapons: Denies Education: Could not remember education level History of Abuse: Denies Legal History: Denies REVIEW OF SYSTEMS Constitutional: Negative for weight loss ENT: Negative for stridor Respiratory: Negative for cough or hemoptysis All other systems reviewed and are negative Diagnoses: Treatment Plan Patient will be admitted for inpatient psychiatric evaluation, medication adjustment and close monitoring The patient's behavior, mood, sleep and appetite will be closely monitored. Patient will be enrolled in individual and group therapeutic sessions and encouraged to attend. Patient will be provided with a safe and structured environment. Patient's physical health needs will be addressed by the Hospitalist. Hospitalist Consulted Labs including CBC, CMP, Lipid profile and Hemoglobin A1C ordered Social Assessment will be completed and the Data Typist will work with patient and family to ensure a suitable and safe disposition Medication adjustment will be made as clinically indicated Usual Wellness Methodist/Preservation: - The patient agreed on the treatment plan, understood the risk, benefit, alternative treatment, potential consequence of no treatment, and gave informed consent. - Constitutional Vitals: Vital Signs Temp Pulse Resp BP Pulse Ox 98.7 F 62 18 90/51 95 03/31/19 08:59 03/31/19 09:29 03/31/19 01:57 03/31/19 09:29 03/31/19 01:57 Temperature -Last 24 Hours Temperature 98.7 F Temperature 97.7 F Temperature 98.0 F General appearance: Present: no acute distress - EENT Eyes: Present: PERRL, EOM intact ENT: hearing intact, clear oral mucosa - Neck Neck: Present: supple, normal ROM - Respiratory Respiratory effort: normal - Integumentary Integumentary: Present: clear, warm, dry Mental Status Exam - Vital signs Last Vital Signs Temp 98.7 F 03/31/19 08:59 Pulse 62 03/31/19 09:29 Resp 18 03/31/19 01:57 BP 90/51 03/31/19 09:29 Pulse Ox 95 03/31/19 01:57 - Exam Orientation: person Affect: normal Mood: appropriate, calm, congruent with affect Thought Process: Disoriented Perceptions: none Speech: normal rate and pattern Concentration: focused Motor activity: normal Level of consciousness: alert Memory: Recent Impaired Sleep Symptoms: None Interaction: cooperative, pleasant Physician Certification - Certification Statement Physician Certification Statement: This is an acknowledgement statement that MAINOR ARRIOLA is a 78 year old F who requires inpatient psychiatric admission for treatment which could reasonably be expected to improve the patient's condition for Estimated period of time patient will need to remain in the hospital: [ ] Plan for post-hospital care: [ ]
[2019-03-31] MEDS: AMOXICILLIN/K CLAV 500/125MG TAB PO SCH ×2 (11:41→21:17)
--- NOTE | 2019-03-31 11:43 | History and Physical Report ---
<KASANDRA MAGANA - Last Filed: 03/31/19 11:51> GP History & Physical - History of Present Illness Date of admission: 03/30/19 Reason for Admission: Danger to self Chief Complaint: Hallucinations History of Present Illness: Physical Examination Narrative exam: The patient was sitting in the day room. She is oriented x 1, and referenced "Antonio" as the president. Calm, pleasant and cooperative. She says she was brought to the hospital by her daughter yana she "got sick." The patient is a poor historian and unable to call any events involving hospitalization. PAST PSYCHIATRIC HISTORY: Diagnoses: Denies Suicide attempts or Self-harm behavior: Patient denies Prior psychiatric hospitalizations: Denies Substance Abuse history: Denies Previous psychiatric medications tried: Unable to recall any medications or treatments Outpatient treatment: Unable to recall any treatments. PAST MEDICAL HISTORY: HTN, DM (per nurse note) Family Psychiatric History None reported or documented SOCIAL HISTORY Marital Status: Single Living Arrangements: Alone, but says her children and sister come to see about her Employment Status: Disabled Access to guns/weapons: Denies Education: Could not remember education level History of Abuse: Denies Legal History: Denies REVIEW OF SYSTEMS Constitutional: Negative for weight loss ENT: Negative for stridor Respiratory: Negative for cough or hemoptysis All other systems reviewed and are negative Diagnoses: Psychosis, Secondary to Dementia Treatment Plan Patient will be admitted for inpatient psychiatric evaluation, medication adjustment and close monitoring The patient's behavior, mood, sleep and appetite will be closely monitored. Patient will be enrolled in individual and group therapeutic sessions and encouraged to attend. Patient will be provided with a safe and structured environment. Patient's physical health needs will be addressed by the Hospitalist. Hospitalist Consulted Labs including CBC, CMP, Lipid profile and Hemoglobin A1C ordered Social Assessment will be completed and the Promotion Writer will work with patient and family to ensure a suitable and safe disposition Medication adjustment will be made as clinically indicated Usual Wellness [facility]/Preservation: - Start Trazodone 50 mg po QHS & 50 mg po QHS PRN between 10 PM & 2 AM for insomnia - Start Melatonin 5 mg po QHS to promote circadian rhythm The patient agreed on the treatment plan, understood the risk, benefit, alte rnative treatment, potential consequence of no treatment, and gave informed consent. Medications and Allergies Allergies Allergy/AdvReac Type Severity Reaction Status Date / Time aspirin AdvReac Unknown Verified 03/30/19 09:58 FLU VACCINE AdvReac Unknown Uncoded 04/20/15 13:35 Home Medications Medication Instructions Recorded Confirmed Last Taken Type Metoprolol [Lopressor TAB] 25 mg PO BID #60 tablet 09/15/17 03/30/19 Unknown Rx LORazepam [Ativan] 1 mg PO TID PRN #14 tablet 12/02/18 03/30/19 Unknown Rx Amoxicillin/Potassium Clav 1 tab PO BID 03/30/19 03/31/19 Unknown History [Augmentin XR 1000MG 12HR] Azilsartan Med/Chlorthalidone 1 tab PO DAILY 03/30/19 03/31/19 Unknown History [Edarbyclor 40-12.5 mg Tablet] Azilsartan Med/Chlorthalidone 1 tab PO QDAY 03/30/19 03/31/19 Unknown History [Edarbyclor 40-12.5 mg Tablet] Donepezil [Aricept] 5 mg PO QHS 03/30/19 03/30/19 Unknown History Ofelia Root [Ofelia] 250 mg PO QID PRN #30 capsule 03/30/19 03/30/19 Unknown Rx Memantine HCl/Donepezil HCl 1 each PO QHS 03/30/19 03/30/19 Unknown History [Namzaric 7 mg-10 mg Capsule] Nitrofurantoin [place]/M-Cryst 100 mg PO Q12HR #13 capsule 03/30/19 03/30/19 03/30/19 Rx [Macrobid CAP] Potassium Chloride 10 meq PO DAILY 03/30/19 03/31/19 Unknown History Simvastatin 10 mg PO QHS 03/30/19 03/30/19 Unknown History Sitagliptin Phos/Metformin HCl 1 tab PO QHS 03/30/19 03/30/19 Unknown History [Janumet XR 100-1,000 mg] Venlafaxine Xr [Effexor Xr] 75 mg PO BID 03/30/19 03/30/19 Unknown History Vit B12/Levomefolate/Vit B6/B2 1 tab PO DAILY 03/30/19 03/31/19 Unknown History [Cerefolin Caplet] amLODIPine [Norvasc] 5 mg PO DAILY 03/30/19 03/30/19 Unknown History Active Meds: Active Medications Amlodipine Besylate (Amlodipine) 5 mg PO DAILY [facility] Last Admin: 03/31/19 09:29 Dose: Not Given Documented by: Amoxicillin/Clavulanate Potassium (Augmentin 500 Mg) 2 each PO BID [facility] Chlorthalidone (Thalitone) 12.5 mg PO QDAY [facility] Last Admin: 03/31/19 11:10 Dose: 12.5 mg Documented by: Clonazepam (Klonopin) 0.5 mg PO BID [facility] Last Admin: 03/31/19 09:29 Dose: 0.5 mg Documented by: Linagliptin (Tradjenta) 5 mg PO [facility] Last Admin: 03/30/19 22:04 Dose: 5 mg Documented by: Losartan Potassium (Cozaar) 50 mg PO QDAY [facility] Last Admin: 03/31/19 09:28 Dose: Not Given Documented by: Melatonin (Melatonin) 5 mg PO QHS [facility] Last Admin: 03/30/19 22:00 Dose: 5 mg Documented by: Metformin HCl (Glucophage Xr) 1,000 mg PO [facility] Last Admin: 03/30/19 22:03 Dose: 1,000 mg Documented by: Metoprolol Tartrate (Metoprolol) 25 mg PO BID [facility] Last Admin: 03/31/19 09:29 Dose: 25 mg Documented by: Nitrofurantoin Macrocrystals (Macrobid) 100 mg PO Q12HR [facility] Last Admin: 03/31/19 11:10 Dose: 100 mg Documented by: Potassium Chloride (K-Dur) 10 meq PO QDAY [facility] Last Admin: 03/31/19 11:10 Dose: 10 meq Documented by: Pravastatin Sodium (Pravachol) 20 mg PO QHS [facility] Last Admin: 03/30/19 22:02 Dose: 20 mg Documented by: Thiamine HCl (Vitamin B-1) 100 mg PO QDAY [facility] Last Admin: 03/31/19 09:28 Dose: 100 mg Documented by: Trazodone HCl (Desyrel) 50 mg PO QHS [facility] Last Admin: 03/30/19 22:01 Dose: 50 mg Documented by: Trazodone HCl (Desyrel) 50 mg PO QHS PRN PRN Reason: insomnia Venlafaxine HCl (Effexor Xr) 75 mg PO BID [facility] Last Admin: 03/31/19 09:30 Dose: 75 mg Documented by: Ziprasidone (Geodon) 10 mg IM Q4H PRN PRN Reason: Agitation Results - Results Labs/Vitals: Laboratory Last Values POC Glucose 138 (70-105) H 03/31/19 06:51 Hemoglobin A1c 7.1 % (4-6) H 03/30/19 19:35 Triglycerides 213 mg/dL (2-149) H 03/30/19 19:35 Cholesterol 174 mg/dL (50-199) 03/30/19 19:35 LDL Cholesterol Direct 73 mg/dL (50-130) 03/30/19 19:35 HDL Cholesterol 47 mg/dL (40-59) 03/30/19 19:35 Cholesterol/HDL Ratio 3.70 % 03/30/19 19:35 Last Vital Signs Temp 98.7 F 03/31/19 08:59 Pulse 62 03/31/19 09:29 Resp 18 03/31/19 01:57 BP 90/51 03/31/19 09:29 Pulse Ox 95 03/31/19 01:57 Physical Examination - Constitutional Vitals: Vital Signs Temp Pulse Resp BP Pulse Ox 98.7 F 62 18 90/51 95 03/31/19 08:59 03/31/19 09:29 03/31/19 01:57 03/31/19 09:29 03/31/19 01:57 Temperature -Last 24 Hours Temperature 98.7 F Temperature 97.7 F Temperature 98.0 F Mental Status Exam - Vital signs Last Vital Signs Temp 98.7 F 03/31/19 08:59 Pulse 62 03/31/19 09:29 Resp 18 03/31/19 01:57 BP 90/51 03/31/19 09:29 Pulse Ox 95 03/31/19 01:57 Physician Certification - Certification Statement Physician Certification Statement: This is an acknowledgement statement that MAINOR ARRIOLA is a 78 year old F who requires inpatient psychiatric admission for treatment which could reasonably be expected to improve the patient's condition for Estimated period of time patient will need to remain in the hospital: [ ] Plan for post-hospital care: [ ] <TIEN BELL - Last Filed: 03/31/19 19:14> GP History & Physical - History of Present Illness History of Present Illness: Per Nursing note, patient had called the police on herself and reported people are in her house eating her food and drinking her juice. patient has hx of dementia. patient is a poor historian. per medication list patient has a medical hx of htn and diabetes. patient was treated for urinary tract infection is on macrobid 100mg Q12hr. Medications and Allergies Active Meds: Active Medications Amlodipine Besylate (Amlodipine) 5 mg PO DAILY [facility] Last Admin: 03/31/19 09:29 Dose: Not Given Documented by: Amoxicillin/Clavulanate Potassium (Augmentin 500 Mg) 2 each PO BID [facility] Last Admin: 03/31/19 11:41 Dose: 2 each Documented by: Chlorthalidone (Thalitone) 12.5 mg PO QDAY [facility] Last Admin: 03/31/19 11:10 Dose: 12.5 mg Documented by: Clonazepam (Klonopin) 0.5 mg PO BID [facility] Last Admin: 03/31/19 09:29 Dose: 0.5 mg Documented by: Insulin Human Regular (Humulin R) 0 units SUB-Q [facility]; Protocol Linagliptin (Tradjenta) 5 mg PO [facility] Last Admin: 03/30/19 22:04 Dose: 5 mg Documented by: Melatonin (Melatonin) 5 mg PO QHS [facility] Last Admin: 03/30/19 22:00 Dose: 5 mg Documented by: Metformin HCl (Glucophage Xr) 1,000 mg PO [facility] Last Admin: 03/30/19 22:03 Dose: 1,000 mg Documented by: Nitrofurantoin Macrocrystals (Macrobid) 100 mg PO Q12HR [facility] Last Admin: 03/31/19 11:10 Dose: 100 mg Documented by: Potassium Chloride (K-Dur) 10 meq PO QDAY [facility] Last Admin: 03/31/19 11:10 Dose: 10 meq Documented by: Pravastatin Sodium (Pravachol) 20 mg PO QHS [facility] Last Admin: 03/30/19 22:02 Dose: 20 mg Documented by: Thiamine HCl (Vitamin B-1) 100 mg PO QDAY [facility] Last Admin: 03/31/19 09:28 Dose: 100 mg Documented by: Trazodone HCl (Desyrel) 50 mg PO QHS [facility] Last Admin: 03/30/19 22:01 Dose: 50 mg Documented by: Trazodone HCl (Desyrel) 50 mg PO QHS PRN PRN Reason: insomnia Venlafaxine HCl (Effexor Xr) 75 mg PO BID [facility] Last Admin: 03/31/19 09:30 Dose: 75 mg Documented by: Ziprasidone (Geodon) 10 mg IM Q4H PRN PRN Reason: Agitation Results - Results Labs/Vitals: Laboratory Last Values POC Glucose 166 (70-105) H 03/31/19 18:07 Hemoglobin A1c 7.1 % (4-6) H 03/30/19 19:35 Triglycerides 213 mg/dL (2-149) H 03/30/19 19:35 Cholesterol 174 mg/dL (50-199) 03/30/19 19:35 LDL Cholesterol Direct 73 mg/dL (50-130) 03/30/19 19:35 HDL Cholesterol 47 mg/dL (40-59) 03/30/19 19:35 Cholesterol/HDL Ratio 3.70 % 03/30/19 19:35 Last Vital Signs Temp 98.7 F 03/31/19 08:59 Pulse 62 03/31/19 09:29 Resp 18 03/31/19 01:57 BP 90/51 03/31/19 09:29 Pulse Ox 95 03/31/19 01:57 Physical Examination - Constitutional Vitals: Vital Signs Temp Pulse Resp BP Pulse Ox 98.7 F 62 18 90/51 95 03/31/19 08:59 03/31/19 09:29 03/31/19 01:57 03/31/19 09:29 03/31/19 01:57 Temperature -Last 24 Hours Temperature 98.7 F Temperature 97.7 F Mental Status Exam - Vital signs Last Vital Signs Temp 98.7 F 03/31/19 08:59 Pulse 62 03/31/19 09:29 Resp 18 03/31/19 01:57 BP 90/51 03/31/19 09:29 Pulse Ox 95 03/31/19 01:57 Physician Certification - Certification Statement Physician Certification Statement: This is an acknowledgement statement that MAINOR ARRIOLA is a 78 year old F who requires inpatient psychiatric admission for treatment which could reasonably be expected to improve the patient's condition for Psychosis Estimated period of time patient will need to remain in the hospital: 7 days Plan for post-hospital care: out-patient care
[2019-03-31 19:46] LABS: Hematocrit 37.8 % (30.3-42.9); Hemoglobin 12.5 gm/dl (10.1-14.3); Mean Corpuscular HGB Conc 33 % (30-34); Mean Corpuscular Volume 97 fl (79-97); Platelet Count 285 K/mm3 (140-440); Red Blood Count 3.88 M/mm3 (3.65-5.03); Red Cell Distribution Width 14.1 % (13.2-15.2)
[2019-03-31 20:02] LABS: BUN/Creatinine Ratio 26; Blood Urea Nitrogen 23 mg/dL (7-17); Hemolysis Index 11
[2019-03-31] MEDS: metFORMIN XR 500MG TAB PO SCH (21:18)
[2019-03-31] MEDS: traZODone 50 MG TAB PO SCH (21:18)
[2019-03-31] MEDS: PRAVASTATIN 20 MG TAB PO SCH (21:19)
[2019-03-31] MEDS: MELATONIN 5 MG TAB PO SCH (21:19)
[2019-03-31] MEDS: LINAGLIPTIN 5 MG TAB PO SCH (21:20)
[2019-03-31] MEDS: INSULIN REGULAR, HUMAN 100 UNITS/1 ML SUB-Q SCH (22:35)
[2019-04-01] MEDS: INSULIN REGULAR, HUMAN 100 UNITS/1 ML SUB-Q SCH ×4 (07:41→23:04)
--- NOTE | 2019-04-01 08:47 | Progress Note ---
Subjective Date of service: 04/01/19 Principal diagnosis: Dementia, Psychosis Subjective Comment: Medical records reviewed and patient's progress was discussed with unit staff. The nurse note states patient is alert and oriented to person, calm and cooperative, pleasantly confused, no agitation, medication compliant, good appetite, able to make needs known, In my interview with the patient this morning, the patient is lying in bed awake. She is pleasant, calm and cooperative. She says today is her daughter's birthday. She is oriented x 2. Mrs Sanchez says her night went "fine." She also says she feels "fine" when asked. The patient says her appetite is good; "I ate good." She denies hallucinations of any kind. When asked about suicidal or homicidal thoughts, she replied "no sweetheart." Review of Symptoms: Constitutional: Negative for weight loss ENT: Negative for stridor Respiratory: Negative for cough or hemoptysis All other systems reviewed and are negative MSE Appearance: Wearing appropriate clothing. In bed Behavior: Pleasant, calm, cooperative. Mood: "fine" Affect: Congruent with stated mood Thought Process: Goal directed Speech: Normal rate. Thought Content Harmfulness Denies SI/HI Hallucinations: patient denies Delusions: none elicited Consciousness: alert Cognition/Memory: fair Insight/Judgment: Limited Assessment and Plan - Patient Problems (1) Dementia, Psychosis Current Visit: Yes Status: Acute Due to the psychiatric conditions and treatment listed in the Assessment and Plan - the patient requires continued hospitalization. Will continue inpatient treatment to allow for medication adjustment and monitoring. Will continue q15 min safety checks. Will encourage the use of environmental modifications and non-pharmacologic approaches for the management of behavioral and psychological symptoms. Medication adjustment made today: No medication changes made Will continue current psych medications Monitor for medication side effects. The patient will continue on medications for physical illnesses, and Hospitalist will closely monitor these Continue intensive physical and occupational therapies. Monitor patient's mood, sleep, appetite, and behavior closely. Encourage patient to participate in individual and group therapeutic sessions on the vazquez. Will provide a safe and therapeutic environment for patient. Estimated length of stay 3 days Medications and Allergies Allergies Allergy/AdvReac Type Severity Reaction Status Date / Time aspirin AdvReac Unknown Verified 03/30/19 09:58 FLU VACCINE AdvReac Unknown Uncoded 04/20/15 13:35 Home Medications Medication Instructions Recorded Confirmed Last Taken Type Metoprolol [Lopressor TAB] 25 mg PO BID #60 tablet 09/15/17 03/30/19 Unknown Rx LORazepam [Ativan] 1 mg PO TID PRN #14 tablet 12/02/18 03/30/19 Unknown Rx Amoxicillin/Potassium Clav 1 tab PO BID 03/30/19 03/31/19 Unknown History [Augmentin XR 1000MG 12HR] Azilsartan Med/Chlorthalidone 1 tab PO DAILY 03/30/19 03/31/19 Unknown History [Edarbyclor 40-12.5 mg Tablet] Azilsartan Med/Chlorthalidone 1 tab PO QDAY 03/30/19 03/31/19 Unknown History [Edarbyclor 40-12.5 mg Tablet] Donepezil [Aricept] 5 mg PO QHS 03/30/19 03/30/19 Unknown History Ofelia Root [Ofelia] 250 mg PO QID PRN #30 capsule 03/30/19 03/30/19 Unknown Rx Memantine HCl/Donepezil HCl 1 each PO QHS 03/30/19 03/30/19 Unknown History [Namzaric 7 mg-10 mg Capsule] Nitrofurantoin Tunica/M-Cryst 100 mg PO Q12HR #13 capsule 03/30/19 03/30/19 03/30/19 Rx [Macrobid CAP] Potassium Chloride 10 meq PO DAILY 03/30/19 03/31/19 Unknown History Simvastatin 10 mg PO QHS 03/30/19 03/30/19 Unknown History Sitagliptin Phos/Metformin HCl 1 tab PO QHS 03/30/19 03/30/19 Unknown History [Janumet XR 100-1,000 mg] Venlafaxine Xr [Effexor Xr] 75 mg PO BID 03/30/19 03/30/19 Unknown History Vit B12/Levomefolate/Vit B6/B2 1 tab PO DAILY 03/30/19 03/31/19 Unknown History [Cerefolin Caplet] amLODIPine [Norvasc] 5 mg PO DAILY 03/30/19 03/30/19 Unknown History Active Meds: Active Medications Amlodipine Besylate (Amlodipine) 5 mg PO DAILY [facility] Last Admin: 03/31/19 09:29 Dose: Not Given Documented by: Amoxicillin/Clavulanate Potassium (Augmentin 500 Mg) 2 each PO BID [facility] Last Admin: 03/31/19 21:17 Dose: 2 each Documented by: Chlorthalidone (Thalitone) 12.5 mg PO QDAY [facility] Last Admin: 03/31/19 11:10 Dose: 12.5 mg Documented by: Clonazepam (Klonopin) 0.5 mg PO BID [facility] Last Admin: 03/31/19 21:19 Dose: 0.5 mg Documented by: Insulin Human Regular (Humulin R) 0 units SUB-Q LOCATED [facility]; Protocol Last Admin: 04/01/19 07:41 Dose: Not Given Documented by: Linagliptin (Tradjenta) 5 mg PO [facility] Last Admin: 03/31/19 21:20 Dose: 5 mg Documented by: Melatonin (Melatonin) 5 mg PO QHS [facility] Last Admin: 03/31/19 21:19 Dose: 5 mg Documented by: Metformin HCl (Glucophage Xr) 1,000 mg PO [facility] Last Admin: 03/31/19 21:18 Dose: 1,000 mg Documented by: Nitrofurantoin Macrocrystals (Macrobid) 100 mg PO Q12HR [facility] Last Admin: 03/31/19 21:19 Dose: 100 mg Documented by: Potassium Chloride (K-Dur) 10 meq PO QDAY [facility] Last Admin: 03/31/19 11:10 Dose: 10 meq Documented by: Pravastatin Sodium (Pravachol) 20 mg PO QHS [facility] Last Admin: 03/31/19 21:19 Dose: 20 mg Documented by: Thiamine HCl (Vitamin B-1) 100 mg PO QDAY [facility] Last Admin: 03/31/19 09:28 Dose: 100 mg Documented by: Trazodone HCl (Desyrel) 50 mg PO QHS [facility] Last Admin: 03/31/19 21:18 Dose: 50 mg Documented by: Trazodone HCl (Desyrel) 50 mg PO QHS PRN PRN Reason: insomnia Venlafaxine HCl (Effexor Xr) 75 mg PO BID [facility] Last Admin: 03/31/19 21:18 Dose: 75 mg Documented by: Ziprasidone (Geodon) 10 mg IM Q4H PRN PRN Reason: Agitation Results - Results Labs/Vitals: Laboratory Last Values WBC 9.5 K/mm3 (4.5-11.0) 03/31/19 19:14 RBC 3.88 M/mm3 (3.65-5.03) 03/31/19 19:14 Hgb 12.5 gm/dl (10.1-14.3) 03/31/19 19:14 Hct 37.8 % (30.3-42.9) 03/31/19 19:14 MCV 97 fl (79-97) 03/31/19 19:14 MCH 32 pg (28-32) 03/31/19 19:14 MCHC 33 % (30-34) 03/31/19 19:14 RDW 14.1 % (13.2-15.2) 03/31/19 19:14 Plt Count 285 K/mm3 (140-440) 03/31/19 19:14 Sodium 140 mmol/L (137-145) 03/31/19 19:14 Potassium 4.1 mmol/L (3.6-5.0) 03/31/19 19:14 Chloride 99.3 mmol/L (98-107) 03/31/19 19:14 Carbon Dioxide 27 mmol/L (22-30) 03/31/19 19:14 Anion Gap 18 mmol/L 03/31/19 19:14 BUN 23 mg/dL (7-17) H 03/31/19 19:14 Creatinine 0.9 mg/dL (0.7-1.2) 03/31/19 19:14 Estimated GFR > 60 ml/min 03/31/19 19:14 BUN/Creatinine Ratio 26 % 03/31/19 19:14 Glucose 176 mg/dL (65-100) H 03/31/19 19:14 POC Glucose 140 (70-105) H 04/01/19 06:36 Hemoglobin A1c 7.1 % (4-6) H 03/30/19 19:35 Calcium 9.0 mg/dL (8.4-10.2) 03/31/19 19:14 Triglycerides 213 mg/dL (2-149) H 03/30/19 19:35 Cholesterol 174 mg/dL (50-199) 03/30/19 19:35 LDL Cholesterol Direct 73 mg/dL (50-130) 03/30/19 19:35 HDL Cholesterol 47 mg/dL (40-59) 03/30/19 19:35 Cholesterol/HDL Ratio 3.70 % 03/30/19 19:35 Last Vital Signs Temp 97.5 F L 03/31/19 19:51 Pulse 74 03/31/19 19:51 Resp 20 03/31/19 19:51 BP 105/47 03/31/19 19:51 Pulse Ox 97 03/31/19 19:51
[2019-04-01] MEDS: CHLORTHALIDONE 25 MG TAB PO SCH (09:57)
[2019-04-01] MEDS: POTASSIUM CHLORIDE ER 10 MEQ TAB PO SCH (09:57)
[2019-04-01] MEDS: AMOXICILLIN/K CLAV 500/125MG TAB PO SCH ×2 (09:57→21:31)
[2019-04-01] MEDS: NITROFURANTOIN MONOHYD/M-CRYST 100 MG CAP PO SCH ×2 (09:57→21:32)
[2019-04-01] MEDS: THIAMINE 100 MG TAB PO SCH (09:57)
[2019-04-01] MEDS: VENLAFAXINE XR 75 MG CAP PO SCH ×2 (09:57→21:32)
[2019-04-01] MEDS: amLODIPine 5 MG TAB PO SCH (09:58)
[2019-04-01] MEDS: clonazePAM 0.5 MG TAB PO SCH ×2 (09:58→21:32)
[2019-04-01] MEDS: PRAVASTATIN 20 MG TAB PO SCH (21:31)
[2019-04-01] MEDS: LINAGLIPTIN 5 MG TAB PO SCH (21:31)
[2019-04-01] MEDS: traZODone 50 MG TAB PO SCH (21:31)
[2019-04-01] MEDS: metFORMIN XR 500MG TAB PO SCH (21:32)
[2019-04-01] MEDS: MELATONIN 5 MG TAB PO SCH (22:41)
[2019-04-02 00:54] VITALS: BP 135/81
--- NOTE | 2019-04-02 08:50 | Discharge Summary ---
Providers - Providers Date of Admission: 03/30/19 16:20 Date of discharge: 04/02/19 Attending physician: TIEN BELL MD 03/30/19 14:38 Consult to Physician [CONS] Routine Comment: Consulting Provider: MÓNICA ESPINOZA Physician Instructions: Reason For Exam: Medical management of geripsych patient Primary care physician: [facility], [place] Hospitalization Reason for admission: Hallucinations Condition: Stable Hospital course: The patient was provided inpatient psychiatric treatment with safe and supportive environment, group/individual therapy, psychiatric medication, medication adjustment, adverse effect monitor, medical evaluation, medical treatment, social service assessment, social support meeting, placement assessment and psycho-education. The patients mood, cognition, behavior, motivation, compliance to treatment and appreciation on family/social support are improved and stabilized. At the time of discharge, the patient had no suicidal ideas, no homicidal ideas, no aggressive thoughts, no endangering behavior and no debilitating adverse effects. The patient agreed on the treatment plan, understood the risk, benefit, alternative treatment, potential consequence of no treatment, and gave informed consent. Disposition: [id number] HOME UNDER HOME [facility] Time spent for discharge: 40 minutes Allergies/Adverse Reactions: Allergies aspirin Adverse Reaction (Verified 03/30/19 09:58) Unknown FLU VACCINE Adverse Reaction (Uncoded 04/20/15 13:35) Unknown Vital Signs: Last Vital Signs Temp 97.6 F 04/01/19 20:03 Pulse 85 04/01/19 20:03 Resp 20 04/01/19 20:03 BP 135/81 04/01/19 20:03 Pulse Ox 99 04/01/19 20:03 Last Lab: Laboratory Last Values WBC 9.5 K/mm3 (4.5-11.0) 03/31/19 19:14 RBC 3.88 M/mm3 (3.65-5.03) 03/31/19 19:14 Hgb 12.5 gm/dl (10.1-14.3) 03/31/19 19:14 Hct 37.8 % (30.3-42.9) 03/31/19 19:14 MCV 97 fl (79-97) 03/31/19 19:14 MCH 32 pg (28-32) 03/31/19 19:14 MCHC 33 % (30-34) 03/31/19 19:14 RDW 14.1 % (13.2-15.2) 03/31/19 19:14 Plt Count 285 K/mm3 (140-440) 03/31/19 19:14 Sodium 140 mmol/L (137-145) 03/31/19 19:14 Potassium 4.1 mmol/L (3.6-5.0) 03/31/19 19:14 Chloride 99.3 mmol/L (98-107) 03/31/19 19:14 Carbon Dioxide 27 mmol/L (22-30) 03/31/19 19:14 Anion Gap 18 mmol/L 03/31/19 19:14 BUN 23 mg/dL (7-17) H 03/31/19 19:14 Creatinine 0.9 mg/dL (0.7-1.2) 03/31/19 19:14 Estimated GFR > 60 ml/min 03/31/19 19:14 BUN/Creatinine Ratio 26 % 03/31/19 19:14 Glucose 176 mg/dL (65-100) H 03/31/19 19:14 POC Glucose 160 (70-105) H 04/01/19 20:49 Hemoglobin A1c 7.1 % (4-6) H 03/30/19 19:35 Calcium 9.0 mg/dL (8.4-10.2) 03/31/19 19:14 Triglycerides 213 mg/dL (2-149) H 03/30/19 19:35 Cholesterol 174 mg/dL (50-199) 03/30/19 19:35 LDL Cholesterol Direct 73 mg/dL (50-130) 03/30/19 19:35 HDL Cholesterol 47 mg/dL (40-59) 03/30/19 19:35 Cholesterol/HDL Ratio 3.70 % 03/30/19 19:35 Core Measure Documentation - Palliative Care Palliative Care/ Comfort Measures: Not Applicable - Core Measures Any of the following diagnoses?: none Exam - Constitutional Vitals: Temp Pulse Resp BP Pulse Ox 97.6 F 85 20 135/81 99 04/01/19 20:03 04/01/19 20:03 04/01/19 20:03 04/01/19 20:03 04/01/19 20:03 General appearance: Present: no acute distress, well-nourished - EENT Eyes: Present: EOM intact ENT: hearing intact, clear oral mucosa - Neck Neck: Present: supple, normal ROM - Respiratory Respiratory effort: normal - Integumentary Integumentary: Present: warm, dry Plan Activity: advance as tolerated Weight Bearing Status: Weight Bear as Tolerated Care Plan Goals: Maintain good and stable mental health Plan of Treatment: The patient should be compliant with medications, not to use drugs and not to drink alcohol. The patient understands that if suicidal ideas, homicidal ideas, or any endangering thoughts arise, the patient should immediately seek for emergent assistance including but not limited to crisis hot line and emergency room. print binding worker also spoke with family who assists with patient's care. Follow up with outpatient Psychiatrist and PCP within 7 - 14 days of discharge. Health Concerns: Atrial fib, dementia, hallucinations Assessment: During my interview this morning with the patient. She was lying in bed. Awake. States her night "was nice." She persistently denies SI/HI and hallucinations of any kind. Mrs. Sanchez says her appetite is good. When asked was she in a good mood, Mrs. Sanchez replied "yes, darling and I'm ready to go home." Follow up with: TERESA NORTONTAYLOR MD TANESHA [Primary Care Provider] - 7 Days Prescriptions: traZODone [Desyrel] 50 mg PO QHS PRN #30 tablet PRN Reason: insomnia Melatonin [Melatonin 5MG TAB] 5 mg PO QHS #30 tablet clonazePAM [KlonoPIN] 0.25 mg PO BID #30 tablet
[2019-04-02] MEDS: INSULIN REGULAR, HUMAN 100 UNITS/1 ML SUB-Q SCH ×3 (12:33→16:10)
[2019-04-02] MEDS: VENLAFAXINE XR 75 MG CAP PO SCH (12:34)
[2019-04-02] MEDS: clonazePAM 0.5 MG TAB PO SCH (12:34)
[2019-04-02] MEDS: NITROFURANTOIN MONOHYD/M-CRYST 100 MG CAP PO SCH (12:34)
[2019-04-02] MEDS: AMOXICILLIN/K CLAV 500/125MG TAB PO SCH (12:34)
[2019-04-02] MEDS: THIAMINE 100 MG TAB PO SCH (12:35)
[2019-04-02] MEDS: POTASSIUM CHLORIDE ER 10 MEQ TAB PO SCH (12:40)
[2019-04-02] MEDS: amLODIPine 5 MG TAB PO SCH (13:02)
[2019-04-02] MEDS: CHLORTHALIDONE 25 MG TAB PO SCH (18:13)
== END 2019-04-02 16:15 | disposition home or self-care (01) | DRG 884 ==
LOC: UNDOADMIN 14:05 → 3A 14:05 → 5A 16:20
PROVIDERS: ADMIT Psychiatry & Neurology Psychiatry; ATTEND Psychiatry & Neurology Psychiatry
DX: F03.90 Unspecified dementia, unspecified severity, without behavioral disturbance, psychotic disturbance, mood disturbance, and anxiety (principal); Z68.41 Body mass index [BMI] 40.0-44.9, adult; I10 Essential (primary) hypertension; E11.9 Type 2 diabetes mellitus without complications; E66.9 Obesity, unspecified; Z88.7 Allergy status to serum and vaccine; Z88.8 Allergy status to other drugs, medicaments and biological substances; Z79.899 Other long term (current) drug therapy; Z79.84 Long term (current) use of oral hypoglycemic drugs
CPT/HCPCS: 36415; 70450; 80048; 80061; 80076; 80307; 80320; 81001; 82962; 83036; 84439; 84443; 85027; 93005; 93010; G0378; A9270-GY; G0480; J1815; J3486; Q0162

== ENCOUNTER 2019-05-28 14:52 | Observation (INO) | payer MEDICARE ==
--- NOTE | 2019-05-28 15:07 | Emergency Department Report ---
Blank Doc - Documentation Documentation: 78-year-old female that presents with hallucinations and is also diagnosed with UTI and taking medications. This initial assessment/diagnostic orders/clinical plan/treatment(s) is/are subject to change based on patient's health status, clinical progression and re- assessment by fellow clinical providers in the ED. Further treatment and workup at subsequent clinical providers discretion. Patient/guardians urged not to elope from the ED as their condition may be serious if not clinically assessed and managed. Initial orders include: 1- Patient sent to [facility] for further evaluation and treatment 2- UA 3- labs
[2019-05-28] MEDS ORDERED: SODIUM CHLORIDE 0.9% 1000 ML 1,000 ML IV ONE (15:17)
--- NOTE | 2019-05-28 15:19 | Emergency Department Report ---
ED Neuro Deficit HPI - General Chief Complaint: Altered Mental Status Stated Complaint: HALLUCINATION Time Seen by Provider: 05/28/19 15:05 Source: patient Mode of arrival: Ambulatory Limitations: No Limitations - History of Present Illness Initial Comments: Patient is a 78-year-old -L[place] female who comes to the emergency room today with weakness for 1 week thought to be related to a recent diagnosis of UTI. However, the family became concerned today because they feel like the patient is worsening. She has no fever. She is not tachycardic. She has no hypotension. Patient had a right facial droop on initial provider exam. The family states that they did not notice this they do not know when it started so a stroke alert was called. At the time of exam other than the facial droop there was no focal deficit. The patient had some trouble focusing but has underlying visual defects. Family also reports the patient has not been sleeping well that she has been up for what they report to be days. Family has been requested to get a list of home medications. Persons with patient on admission are poor informants. The one states that she comes in and out of the house to check on the patient. She reports that she had not noticed the patient's facial droopiness in the past. On exam patient is oriented to her name and she knows she is in the hospital, she recognizes her family. She cannot tell me the date. She denies being in any pain. She denies any chest pain or shortness of breath. She denies abdominal pain. She denies nausea vomiting or diarrhea. She denies back pain. She denies any difficulty urinating. Blood sugar on arrival 114. Location: right face Presenting Symptoms: Present: Weak/Paralyzed One Side History of same: No Place: home Severity: mild Improves With: none Worsens With: none On Anticoagulants: Yes Associated Symptoms: denies other symptoms, weakness. denies: confusion, chest pain, cough, diaphoresis, fever/chills, headaches, loss of appetite, malise, nausea/vomiting, vertigo, seizures, shortness of breath, syncope Treatments Prior to Arrival: none - Related Data Home Medications: Home Medications Medication Instructions Recorded Confirmed Last Taken Apixaban [Eliquis] 5 mg PO BID 05/28/19 05/28/19 Unknown Azilsartan Med/Chlorthalidone 1 each PO QDAY 05/28/19 05/28/19 Unknown [Edarbyclor 40-12.5 mg Tablet] Donepezil [Aricept] 10 mg PO QDAY 05/28/19 05/28/19 Unknown Hydroxyzine HCl [hydrOXYzine] 25 mg PO QHS 05/28/19 05/28/19 Unknown Metoprolol Xl [Metoprolol 25 mg PO BID 05/28/19 05/28/19 Unknown SUCCINATE ER TAB] Simvastatin 10 mg PO QDAY 05/28/19 05/28/19 Unknown Sitagliptin Phos/Metformin HCl 1 each PO QDAY 05/28/19 05/28/19 Unknown [Janumet 50-500 mg Tablet] Venlafaxine [Effexor] 75 mg PO BID 05/28/19 05/28/19 Unknown amLODIPine [Norvasc] 5 mg PO DAILY 05/28/19 05/28/19 Unknown Allergies/Adverse Reactions: Allergies Allergy/AdvReac Type Severity Reaction Status Date / Time aspirin AdvReac Unknown Verified 03/30/19 09:58 FLU VACCINE AdvReac Unknown Uncoded 04/20/15 13:35 ED Review of Systems ROS: Stated complaint: HALLUCINATION Other details as noted in HPI Comment: All other systems reviewed and negative ED Past Medical Hx - Past Medical History Previous Medical History?: Yes Hx Hypertension: Yes Hx CVA: Yes Hx Heart Attack/AMI: No Hx Congestive Heart Failure: No Hx Diabetes: Yes Hx Deep Vein Thrombosis: No Hx Pulmonary Embolism: No Hx GERD: No Hx Liver Disease: No Hx Renal Disease: No Hx of Cancer: No Hx Sickle Cell Disease: No Hx Arthritis: No Hx Headaches / Migraines: No Hx Seizures: No Hx Kidney Stones: No Hx Psychiatric Treatment: No Hx Asthma: Yes Hx COPD: No Hx Tuberculosis: No Hx Dementia: Yes Hx HIV: No - Surgical History Past Surgical History?: Yes Hx Cholecystectomy: No Hx Appendectomy: No Additional Surgical History: tonsilectomy - Family History Family history: no significant - Social History Smoking Status: Never Smoker Substance Use Type: None - Medications Home Medications: Home Medications Medication Instructions Recorded Confirmed Last Taken Type Apixaban [Eliquis] 5 mg PO BID 05/28/19 05/28/19 Unknown History Azilsartan Med/Chlorthalidone 1 each PO QDAY 05/28/19 05/28/19 Unknown History [Edarbyclor 40-12.5 mg Tablet] Donepezil [Aricept] 10 mg PO QDAY 05/28/19 05/28/19 Unknown History Hydroxyzine HCl [hydrOXYzine] 25 mg PO QHS 05/28/19 05/28/19 Unknown History Metoprolol Xl [Metoprolol 25 mg PO BID 05/28/19 05/28/19 Unknown History SUCCINATE ER TAB] Simvastatin 10 mg PO QDAY 05/28/19 05/28/19 Unknown History Sitagliptin Phos/Metformin HCl 1 each PO QDAY 05/28/19 05/28/19 Unknown History [Janumet 50-500 mg Tablet] Venlafaxine [Effexor] 75 mg PO BID 05/28/19 05/28/19 Unknown History amLODIPine [Norvasc] 5 mg PO DAILY 05/28/19 05/28/19 Unknown History ED Neuro Physical Exam - General Limitations: No Limitations General appearance: alert, in no apparent distress Suspected Stroke: Yes - Head Head exam: Present: atraumatic, normocephalic - Eye Eye exam: Present: normal appearance, PERRL. Absent: EOMI - ENT ENT exam: Present: mucous membranes dry - Neck Neck exam: Present: normal inspection - Respiratory Respiratory exam: Present: normal lung sounds bilaterally. Absent: respiratory distress - Cardiovascular Cardiovascular Exam: Present: regular rate, normal rhythm. Absent: systolic murmur, diastolic murmur, rubs, gallop - GI/Abdominal GI/Abdominal exam: Present: soft, normal bowel sounds - Extremities Exam Extremities exam: Present: normal inspection - Back Exam Back exam: Present: normal inspection. Absent: CVA tenderness (R), CVA tenderness (L) - Neurological Exam Neurological exam: Present: alert - NIHSS Assessment Interval: Baseline 1a. Level of Consciousness: alert/keenly responsive 1b. LOC Questions: answers both correctly 1c. LOC Commands: performs tasks correctly 2. Best Gaze: normal 3. Visual: no visual loss 4. Facial Palsy: minor paralysis 5b. Motor Arm Right: no drift 5a. Motor Arm Left: no drift 6a. Motor Leg Left: no drift 6b. Motor Leg Right: no drift 7. Limb Ataxia: absent 8. Sensory: normal 9. Best Language: no aphasia 10. Dysarthria: normal 11. Extinction/Inattention: no abnormality Total Score: 1 Stroke Severity: Minor Stroke - Psychiatric Psychiatric exam: Present: normal affect, normal mood - Skin Skin exam: Present: warm, dry, intact, normal color. Absent: rash ED Course Vital Signs 05/28/19 05/28/19 05/28/19 15:06 15:20 15:38 Temperature 98.1 F Pulse Rate 91 H 75 Respiratory 18 17 Rate Blood Pressure 120/69 99/61 O2 Sat by Pulse 96 99 97 Oximetry - Reevaluation(s) Reevaluation #1: 05/28/19 1600 Family has been requested to bring meds to hospital Reevaluation #2: 05/28/19 17:33 Dr Duran notified of admit - Lab Data Result diagrams: 05/28/19 15:22 05/28/19 15:22 Lab Results 05/28/19 05/28/19 05/28/19 Range/Units 15:22 15:22 15:22 WBC 9.1 (4.5-11.0) K/mm3 RBC 3.63 L (3.65-5.03) M/mm3 Hgb 11.6 (10.1-14.3) gm/dl Hct 34.4 (30.3-42.9) % MCV 95 (79-97) fl MCH 32 (28-32) pg MCHC 34 (30-34) % RDW 14.5 (13.2-15.2) % Plt Count 274 (140-440) K/mm3 Lymph % (Auto) 19.3 (13.4-35.0) % [place] % (Auto) 7.0 (0.0-7.3) % Eos % (Auto) 0.8 (0.0-4.3) % Baso % (Auto) 0.6 (0.0-1.8) % Lymph # 1.8 (1.2-5.4) K/mm3 [place] # 0.6 (0.0-0.8) K/mm3 Eos # 0.1 (0.0-0.4) K/mm3 Baso # 0.1 (0.0-0.1) K/mm3 Seg Neutrophils % 72.3 H (40.0-70.0) % Seg Neutrophils # 6.6 (1.8-7.7) K/mm3 PT 15.8 H (12.2-14.9) Sec. INR 1.24 H (0.87-1.13) APTT 35.4 (24.2-36.6) Sec. Sodium 144 (137-145) mmol/L Potassium 4.0 (3.6-5.0) mmol/L Chloride 103.5 (98-107) mmol/L Carbon Dioxide 27 (22-30) mmol/L Anion Gap 18 mmol/L BUN 25 H (7-17) mg/dL Creatinine 0.9 (0.7-1.2) mg/dL Estimated GFR > 60 ml/min BUN/Creatinine Ratio 28 % Glucose 119 H (65-100) mg/dL Lactic Acid (0.7-2.0) mmol/L Calcium 9.5 (8.4-10.2) mg/dL Total Bilirubin 0.40 (0.1-1.2) mg/dL AST 17 (5-40) units/L ALT 9 (7-56) units/L Alkaline Phosphatase 95 (35-129) units/L Total Creatine Kinase 133 (30-135) units/L CK-MB (CK-2) (0.0-4.0) ng/mL CK-MB (CK-2) Rel Index (0-4) Troponin T (0.00-0.029) ng/mL Total Protein 7.6 (6.3-8.2) g/dL Albumin 4.0 (3.9-5) g/dL Albumin/Globulin Ratio 1.1 % 05/28/19 05/28/19 Range/Units 15:22 15:22 WBC (4.5-11.0) K/mm3 RBC (3.65-5.03) M/mm3 Hgb (10.1-14.3) gm/dl Hct (30.3-42.9) % MCV (79-97) fl MCH (28-32) pg MCHC (30-34) % RDW (13.2-15.2) % Plt Count (140-440) K/mm3 Lymph % (Auto) (13.4-35.0) % [place] % (Auto) (0.0-7.3) % Eos % (Auto) (0.0-4.3) % Baso % (Auto) (0.0-1.8) % Lymph # (1.2-5.4) K/mm3 [place] # (0.0-0.8) K/mm3 Eos # (0.0-0.4) K/mm3 Baso # (0.0-0.1) K/mm3 Seg Neutrophils % (40.0-70.0) % Seg Neutrophils # (1.8-7.7) K/mm3 PT (12.2-14.9) Sec. INR (0.87-1.13) APTT (24.2-36.6) Sec. Sodium (137-145) mmol/L Potassium (3.6-5.0) mmol/L Chloride (98-107) mmol/L Carbon Dioxide (22-30) mmol/L Anion Gap mmol/L BUN (7-17) mg/dL Creatinine (0.7-1.2) mg/dL Estimated GFR ml/min BUN/Creatinine Ratio % Glucose (65-100) mg/dL Lactic Acid 1.40 (0.7-2.0) mmol/L Calcium (8.4-10.2) mg/dL Total Bilirubin (0.1-1.2) mg/dL AST (5-40) units/L ALT (7-56) units/L Alkaline Phosphatase (35-129) units/L Total Creatine Kinase 143 H (30-135) units/L CK-MB (CK-2) 1.7 (0.0-4.0) ng/mL CK-MB (CK-2) Rel Index 1.1 (0-4) Troponin T < 0.010 (0.00-0.029) ng/mL Total Protein (6.3-8.2) g/dL Albumin (3.9-5) g/dL Albumin/Globulin Ratio % - EKG Data -: EKG Interpreted by Sc EKG shows normal: sinus rhythm - Radiology Data Radiology results: report reviewed, image reviewed - Medical Decision Making Labs 05/28/19 05/28/19 05/28/19 15:22 15:22 15:22 WBC 9.1 RBC 3.63 L Hgb 11.6 Hct 34.4 MCV 95 MCH 32 MCHC 34 RDW 14.5 Plt Count 274 Lymph % (Auto) 19.3 [place] % (Auto) 7.0 Eos % (Auto) 0.8 Baso % (Auto) 0.6 Lymph # 1.8 [place] # 0.6 Eos # 0.1 Baso # 0.1 Seg Neutrophils % 72.3 H Seg Neutrophils # 6.6 PT 15.8 H INR 1.24 H APTT 35.4 Sodium 144 Potassium 4.0 Chloride 103.5 Carbon Dioxide 27 Anion Gap 18 BUN 25 H Creatinine 0.9 Estimated GFR > 60 BUN/Creatinine Ratio 28 Glucose 119 H Lactic Acid Calcium 9.5 Total Bilirubin 0.40 AST 17 ALT 9 Alkaline Phosphatase 95 Total Creatine Kinase 133 CK-MB (CK-2) CK-MB (CK-2) Rel Index Troponin T Total Protein 7.6 Albumin 4.0 Albumin/Globulin Ratio 1.1 05/28/19 05/28/19 15:22 15:22 WBC RBC Hgb Hct MCV MCH MCHC RDW Plt Count Lymph % (Auto) [place] % (Auto) Eos % (Auto) Baso % (Auto) Lymph # [place] # Eos # Baso # Seg Neutrophils % Seg Neutrophils # PT INR APTT Sodium Potassium Chloride Carbon Dioxide Anion Gap BUN Creatinine Estimated GFR BUN/Creatinine Ratio Glucose Lactic Acid 1.40 Calcium Total Bilirubin AST ALT Alkaline Phosphatase Total Creatine Kinase 143 H CK-MB (CK-2) 1.7 CK-MB (CK-2) Rel Index 1.1 Troponin T < 0.010 Total Protein Albumin Albumin/Globulin Ratio Vital Signs 05/28/19 05/28/19 05/28/19 15:06 15:20 15:38 Temperature 98.1 F Pulse Rate 91 H 75 Respiratory 18 17 Rate Blood Pressure 120/69 99/61 O2 Sat by Pulse 96 99 97 Oximetry Family reports that the patient has not been herself for over a week. They contributed this to a UTI. However, they are concerned today because she seems weaker than normal. Patient has a right-sided facial paralysis on exam. This is the only neuro deficit appreciable. There is no pronator. She is ambulatory. EOMs are intact. Patient does seem to have some visual field defects but she also reports that she has bad vision baseline. On arrival due to the right-sided facial paralysis and the family stating that they had not noticed the paralysis or when it started a code stroke was called. Tele-neurology was consulted. They have recommended MRI/MRA of head and neck as well as an EEG. CT of the head read negative by radiology. Given the recent UTI -blood cultures and urine cultures have been sent. Chest x-ray with no consolidation. CTA of head and neck noted to be normal. Patient being admitted to hospital medicine for continued evaluation. - Differential Diagnosis ro cva/sepsis/worsening dementia/metabolic encephalopathy - Core Measures Measure Exclusions: not indicated - Thrombolytic Inclusion/Exclusion Thrombolytic Exclusion Criteria: Onset of Symptoms Unknown Thrombolytic Contraindications: Patient on Anticoagulants Critical care attestation.: If time is entered above; I have spent that time in minutes in the direct care of this critically ill patient, excluding procedure time. ED Disposition Clinical Impression: Altered mental status Disposition: [id number] OP ADMIT IP TO THIS HOSP Is pt being admited?: Yes Does the pt Need Aspirin: No Condition: Stable Time of Disposition: 16:59
[2019-05-28 15:42] LABS: Basophils # (Auto) 0.1 K/mm3 (0.0-0.1); Basophils % (Auto) 0.6 % (0.0-1.8); Eosinophils # (Auto) 0.1 K/mm3 (0.0-0.4); Eosinophils % (Auto) 0.8 % (0.0-4.3); Hematocrit 34.4 % (30.3-42.9); Hemoglobin 11.6 gm/dl (10.1-14.3); Lymphocytes # (Auto) 1.8 K/mm3 (1.2-5.4); Lymphocytes % (Auto) 19.3 % (13.4-35.0); Mean Corpuscular HGB Conc 34 % (30-34); Mean Corpuscular Volume 95 fl (79-97); Monocytes # (Auto) 0.6 K/mm3 (0.0-0.8); Platelet Count 274 K/mm3 (140-440); Red Blood Count 3.63 M/mm3 (3.65-5.03); Red Cell Distribution Width 14.5 % (13.2-15.2)
[2019-05-28 15:52] LABS: INR 1.24 (0.87-1.13)
[2019-05-28 15:53] LABS: Partial Thromboplastin Time 35.4 Sec. (24.2-36.6)
--- NOTE | 2019-05-28 15:55 | Emergency Department Report ---
ED General Adult HPI - General Chief complaint: Altered Mental Status Stated complaint: HALLUCINATION Time Seen by Provider: 05/28/19 15:05 Source: patient Mode of arrival: Ambulatory Limitations: No Limitations - History of Present Illness Initial comments: [facility] Tele[facility] Date of Service: 05/28/2019 15:20:09 Impression: RO Acute Ischemic Stroke Comments: Pateint with dementia, and is having hallucination. Possible lewy body dementia, but also at the same time this came on suddenly and abrupt mental status, since last sunday. she has high blood pressure and is a diabetic as well. Mechanism of Stroke: Possible Thromboembolic Metrics: Last Known Well: 05/28/2019 15:19:31 [employer] Notification Time: 05/28/2019 15:19:31 Arrival Time: 05/28/2019 15:46:04 Stamp Time: 05/28/2019 15:20:09 Time First Login Attempt: 05/28/2019 15:23:00 Video Start Time: 05/28/2019 15:23:00 Symptoms: hallucinations NIHSS Start Assessment Time: 05/28/2019 15:31:20 Patient is not a candidate for tPA. Patient was not deemed candidate for tPA thrombolytics because of Last Well Known Above 4.5 Hours. Video End Time: 05/28/2019 15:48:27 CT head showed no acute hemorrhage or acute core infarct. CT angio head/neck is negative. Presentation suggestive of Large Vessel Occlusive Disease, Neurointerventional specialists to be consulted. Radiologist was called back for review of advanced imaging on 05/28/2019 15:47:05 ED Physician notified of diagnostic impression and management plan on 05/28/2019 15:46:24 Our recommendations are outlined below. Recommendations: Activate Stroke Protocol Admission/Order Set Stroke/Telemetry Floor Neuro Checks Bedside Swallow Eval DVT Prophylaxis IV Fluids, Normal Saline Head of Bed Below 30 Degrees Euglycemia and Avoid Hyperthermia (PRN Acetaminophen) Hold Antithrombotics for Now Recommended Scan: MRI Head with and Without Contrast Lipid Panel to Be Obtained, if Not Done in the Last Three Months Therapies: Physical Therapy, Occupational Therapy, Speech Therapy Assessment When Applicable Dysphaghia Screen: Swallow Evaluation, Bedside NPO Until Swallow Evaluation History of Present Illness: Patient is a 78 year old Female. Patient was brought by EMS for symptoms of hallucinations She has been sleeping for a while and not sleeping for a couple of days. Last sunday she was normal. She is seeing people. She keeps seeing animals. CT head showed no acute hemorrhage or acute core infarct. Last seen normal was beyond 4.5 hours of presentation. There is no history of hemorrhagic complications or intracranial hemorrhage. There is no history of Recent Anticoagulants. There is no history of recent major surgery. There is no history of recent stroke. Examination: 1A: Level of Consciousness - Alert; keenly responsive + 0 1B: Ask Month and Age - Both Questions Right + 0 1C: Blink Eyes & Squeeze Hands - Performs Both Tasks + 0 2: Test Horizontal Extraocular Movements - Normal + 0 3: Test Visual [place] - No Visual Loss + 0 4: Test Facial Palsy (Use Grimace if Obtunded) - Normal symmetry + 0 5A: Test Left Arm Motor Drift - No Drift for 10 Seconds + 0 5B: Test Right Arm Motor Drift - No Drift for 10 Seconds + 0 6A: Test Left Leg Motor Drift - No Drift for 5 Seconds + 0 6B: Test Right Leg Motor Drift - No Drift for 5 Seconds + 0 7: Test Limb Ataxia (FNF/Heel-Valdez) - No Ataxia + 0 8: Test Sensation - Normal; No sensory loss + 0 9: Test Language/Aphasia - Normal; No aphasia + 0 10: Test Dysarthria - Normal + 0 11: Test Extinction/Inattention - No abnormality + 0 NIHSS Score: 0 Patient was informed the Neurology Consult would happen via TeleHealth consult by way of interactive audio and video telecommunications and consented to receiving care in this manner. Due to the immediate potential for life-threatening deterioration due to underlying acute neurologic illness, I spent 35 minutes providing critical care. This time includes time for face to face visit via telemedicine, review of medical records, imaging studies and discussion of findings with providers, the patient and/or family. Dr Bear [facility] Case [id number] - Related Data Home Medications Medication Instructions Recorded Confirmed Last Taken Amoxicillin/Potassium Clav 1 tab PO BID 03/30/19 03/31/19 Unknown [Augmentin XR 1000MG 12HR] Azilsartan Med/Chlorthalidone 1 tab PO DAILY 03/30/19 03/31/19 Unknown [Edarbyclor 40-12.5 mg Tablet] Azilsartan Med/Chlorthalidone 1 tab PO QDAY 03/30/19 03/31/19 Unknown [Edarbyclor 40-12.5 mg Tablet] Donepezil [Aricept] 5 mg PO QHS 03/30/19 03/30/19 Unknown Memantine HCl/Donepezil HCl 1 each PO QHS 03/30/19 03/30/19 Unknown [Namzaric 7 mg-10 mg Capsule] Potassium Chloride 10 meq PO DAILY 03/30/19 03/31/19 Unknown Simvastatin 10 mg PO QHS 03/30/19 03/30/19 Unknown Sitagliptin Phos/Metformin HCl 1 tab PO QHS 03/30/19 03/30/19 Unknown [Janumet XR 100-1,000 mg] Venlafaxine Xr [Effexor XR] 75 mg PO BID 03/30/19 03/30/19 Unknown Vit B12/Levomefolate/Vit B6/B2 1 tab PO DAILY 03/30/19 03/31/19 Unknown [Cerefolin Caplet] amLODIPine 5 mg PO DAILY 03/30/19 03/30/19 Unknown Previous Rx's Medication Instructions Recorded Last Taken Type Metoprolol [Lopressor TAB] 25 mg PO BID #60 tablet 09/15/17 Unknown Rx Ofelia Root [Ofelia] 250 mg PO QID PRN #30 capsule 03/30/19 Unknown Rx Nitrofurantoin [place]/M-Cryst 100 mg PO Q12HR #13 capsule 03/30/19 03/30/19 Rx [Macrobid CAP] Melatonin [Melatonin 5MG TAB] 5 mg PO QHS #30 tablet 04/02/19 Unknown Rx clonazePAM [KlonoPIN] 0.25 mg PO BID #30 tablet 04/02/19 Unknown Rx traZODone [Desyrel] 50 mg PO QHS PRN #30 tablet 04/02/19 Unknown Rx Allergies Allergy/AdvReac Type Severity Reaction Status Date / Time aspirin AdvReac Unknown Verified 03/30/19 09:58 FLU VACCINE AdvReac Unknown Uncoded 04/20/15 13:35 ED Review of Systems ROS: Stated complaint: HALLUCINATION Other details as noted in HPI ED Past Medical Hx - Past Medical History Previous Medical History?: Yes Hx Hypertension: Yes Hx CVA: Yes Hx Diabetes: Yes Hx Renal Disease: No Hx Arthritis: No Hx Seizures: No Hx Asthma: Yes Hx Dementia: Yes Hx HIV: No - Surgical History Past Surgical History?: Yes Hx Cholecystectomy: No Hx Appendectomy: No Additional Surgical History: tonsilectomy - Social History Smoking Status: Never Smoker Substance Use Type: None - Medications Home Medications: Home Medications Medication Instructions Recorded Confirmed Last Taken Type Metoprolol [Lopressor TAB] 25 mg PO BID #60 tablet 09/15/17 03/30/19 Unknown Rx Amoxicillin/Potassium Clav 1 tab PO BID 03/30/19 03/31/19 Unknown History [Augmentin XR 1000MG 12HR] Azilsartan Med/Chlorthalidone 1 tab PO DAILY 03/30/19 03/31/19 Unknown History [Edarbyclor 40-12.5 mg Tablet] Azilsartan Med/Chlorthalidone 1 tab PO QDAY 03/30/19 03/31/19 Unknown History [Edarbyclor 40-12.5 mg Tablet] Donepezil [Aricept] 5 mg PO QHS 03/30/19 03/30/19 Unknown History Ofelia Root [Ofelia] 250 mg PO QID PRN #30 capsule 03/30/19 03/30/19 Unknown Rx Memantine HCl/Donepezil HCl 1 each PO QHS 03/30/19 03/30/19 Unknown History [Namzaric 7 mg-10 mg Capsule] Nitrofurantoin [place]/M-Cryst 100 mg PO Q12HR #13 capsule 03/30/19 03/30/19 03/30/19 Rx [Macrobid CAP] Potassium Chloride 10 meq PO DAILY 03/30/19 03/31/19 Unknown History Simvastatin 10 mg PO QHS 03/30/19 03/30/19 Unknown History Sitagliptin Phos/Metformin HCl 1 tab PO QHS 03/30/19 03/30/19 Unknown History [Janumet XR 100-1,000 mg] Venlafaxine Xr [Effexor XR] 75 mg PO BID 03/30/19 03/30/19 Unknown History Vit B12/Levomefolate/Vit B6/B2 1 tab PO DAILY 03/30/19 03/31/19 Unknown History [Cerefolin Caplet] amLODIPine 5 mg PO DAILY 03/30/19 03/30/19 Unknown History Melatonin [Melatonin 5MG TAB] 5 mg PO QHS #30 tablet 04/02/19 Unknown Rx clonazePAM [KlonoPIN] 0.25 mg PO BID #30 tablet 04/02/19 Unknown Rx traZODone [Desyrel] 50 mg PO QHS PRN #30 tablet 04/02/19 Unknown Rx ED Physical Exam - General Limitations: No Limitations ED Course Vital Signs 05/28/19 05/28/19 05/28/19 15:06 15:20 15:38 Temperature 98.1 F Pulse Rate 91 H 75 Respiratory 18 17 Rate Blood Pressure 120/69 99/61 O2 Sat by Pulse 96 99 97 Oximetry ED Medical Decision Making - Lab Data Result diagrams: 05/28/19 15:22 Critical care attestation.: If time is entered above; I have spent that time in minutes in the direct care of this critically ill patient, excluding procedure time. ED Disposition Condition: Stable
--- NOTE | 2019-05-28 16:02 | Cat Scan Report ---
CT HEAD WITHOUT CONTRAST INDICATION / CLINICAL INFORMATION: MAIN: CODE STROKE CALL [phone]. TECHNIQUE: All CT scans at this location are performed using CT dose reduction for ALARA by means of automated e xposure control. COMPARISON: 03/30/2019 FINDINGS: HEMORRHAGE: No evidence of intracranial hemorrhage or extra-axial fluid collection. EXTRA-AXIAL SPACES: Cortical sulci, sylvian fissures and basilar cisterns have an unremarkable appear ance. VENTRICULAR SYSTEM: The ventricular system is of normal size and configuration. CEREBRAL PARENCHYMA: No areas of abnormal brain parenchymal attenuation are identified. There is no i ndication of recent infarction. MIDLINE SHIFT OR HERNIATION: There is no mass effect. CEREBELLUM / BRAINSTEM: Brainstem and cerebellum have an unremarkable appearance. INTRACRANIAL VESSELS:No abnormalities are identified on this noncontrast head CT. ORBITS: visualized portions of the orbits have an unremarkable appearance. SOFT TISSUES of HEAD: No significant abnormality. CALVARIUM: Evaluation of bone windows reveals no abnormalities. PARANASAL SINUSES / MASTOID AIR CELLS: Paranasal sinuses are free from inflammatory mucosal disease. Mastoid air cells are normally pneumatized. ADDITIONAL FINDINGS: None. IMPRESSION: 1. No acute intracranial abnormality. A verbal report was given to WANG Louis in the emergency department on 05/28/2019 at 3:56 PM EST. Signer Name: Kareem Mcneal MD Signed: 05/28/2019 3:57 PM Workstation Name: [id number]
[2019-05-28 16:05] LABS: Creatine Kinase MB 1.7 ng/mL (0.0-4.0)
[2019-05-28 16:07] LABS: Alanine Aminotransferase 9 units/L (7-56); BUN/Creatinine Ratio 28; Blood Urea Nitrogen 25 mg/dL (7-17); Calcium 9.5 mg/dL (8.4-10.2); Hemolysis Index 13
--- NOTE | 2019-05-28 16:55 | XRay Report ---
CHEST 1 VIEW INDICATION: ams. COMPARISON: 09/13/2017 FINDINGS: Support devices: None. Heart: Normal. Lungs/Pleura: No acute pulmonary or pleural findings. IMPRESSION: 1. No acute findings. Signer Name: Janak Fernandez MD Signed: 05/28/2019 4:51 PM Workstation Name: [id number]
--- NOTE | 2019-05-28 17:04 | Cat Scan Report ---
CTA HEAD WITH CONTRAST HISTORY: Right facial droop COMPARISON: None. TECHNIQUE: Routine non-contrast CT Head, CTA of the head and post-contrast CT Head are performed. 3-D /MIP reformats postprocessed. All CT scans at this location are performed using CT dose reduction for ALARA by means of automated exposure control CONTRAST: 100 ml of Omnipaque 350 FINDINGS: CTA Head: Intracranial vertebral arteries: No significant abnormality. Basilar artery: No significant abnormality. Posterior cerebral arteries: No significant abnormality. Intracranial internal carotid arteries: No significant abnormality. Anterior cerebral arteries: No significant abnormality. Middle cerebral arteries: No significant abnormality. Dural venous sinuses:Not optimally opacified. No significant abnormality. Additional findings: None. IMPRESSION: 1. Normal CTA of the brain. Signer Name: Irene Guthrie MD Signed: 05/28/2019 5:00 PM Workstation Name: [id number]
--- NOTE | 2019-05-28 17:06 | Cat Scan Report ---
CTA NECK WITH CONTRAST HISTORY: Facial droop COMPARISON: None. TECHNIQUE: Routine CTA of the neck was performed. 3-D/MIP reformats were postprocessed. Percentage s tenosis is determined by direct quantitative measurements of diseased internal carotid artery diamete r compared with normal distal internal carotid artery reference segments or by criteria similar to NA SCET where applicable.All CT scans at this location are performed using CT dose reduction for ALARA b y means of automated exposure control CONTRAST: 100 ml of Omnipaque 350 FINDINGS: Aortic arch: No significant abnormality. Cervical vertebral arteries: No significant abnormality. Common carotid arteries: No significant abnormality. Carotid bifurcations: Normal Cervical internal carotid arteries: No significant abnormality. Additional findings: None. IMPRESSION: 1. No significant abnormality. Signer Name: Irene Guthrie MD Signed: 05/28/2019 5:02 PM Workstation Name: [id number]
[2019-05-28] MEDS ORDERED: SODIUM CHLORIDE 0.9% 1000 ML IV SOLN IV ONE (17:24)
[2019-05-28] MEDS ORDERED: CEFEPIME/NS 2 GM/100 ML 2 GM/100 ML BAG IV SCH (17:25)
--- NOTE | 2019-05-28 17:48 | Magnetic Resonance Report ---
MR brain wo con INDICATION / CLINICAL INFORMATION: 78 years Female; ams; r facial droop. TECHNIQUE: Multiplanar, multisequence MR images of the brain were obtained. Motion artifact COMPARISON: CT head - 05/28/2019 FINDINGS: BRAIN / INTRACRANIAL CONTENTS: Mild cerebral and cerebellar atrophy. Mild degree of hippocampal atrophy suggested bilaterally. There are minimal areas of increased signal intensity on FLAIR imaging in the white matter of the cer ebral hemispheres. These are nonspecific findings and may be related to microangiopathy (hypertension , diabetes, atherosclerosis), given the patient's age. Otherwise, no acute ischemia, acute hemorrhage, or hydrocephalus. CRANIOCERVICAL JUNCTION: No significant abnormality. VASCULAR FLOW-VOIDS: No significant abnormality. ORBITS: No significant abnormality of visualized orbits. SINUSES / MASTOIDS: No significant abnormality the visualized paranasal sinuses or mastoid air cells. ADDITIONAL FINDINGS: Prominent soft tissue is seen in the roof the nasopharynx, presumably related to reactive adenoidal tissue. Please clinically correlate. IMPRESSION: 1. No focal mass, hemorrhage, hydrocephalus, or acute ischemia. Signer Name: Prosper Guillaume MD, III Signed: 05/28/2019 5:43 PM Workstation Name: [id number]
[2019-05-28 20:06] LABS: Bilirubin,Urine NEG (Negative); Blood,Urine NEG (Negative); Color,Urine Straw (Yellow); Mucus,Urine FEW /HPF; Protein,Urine <15 mg/dL mg/dL (Negative); RBC,Urine < 1.0 /HPF (0.0-6.0); Urobilinogen,Urine < 2.0 mg/dL (<2.0); WBC,Urine < 1.0 /HPF (0.0-6.0)
[2019-05-28] MEDS ORDERED: ONDANSETRON 4 MG/2 ML INJ IV PRN (20:34)
[2019-05-28] MEDS ORDERED: ALBUTEROL 2.5 MG/3 ML NEBU IH PRN (20:34)
[2019-05-28] MEDS ORDERED: DEXTROSE 50% IN WATER (25GM) 50 ML SYRINGE IV PRN (20:42)
[2019-05-28] MEDS: APIXABAN 5 MG TAB PO SCH (21:18)
[2019-05-28] MEDS: SODIUM CHLORIDE 0.9% 1000 ML 1,000 ML IV SCH (21:18)
[2019-05-28] MEDS: DOCUSATE SODIUM 100 MG CAP PO SCH (21:18)
[2019-05-28] MEDS: ACETAMINOPHEN 325 MG TAB PO PRN (21:18)
[2019-05-28] MEDS: VENLAFAXINE 75 MG TAB PO SCH (21:18)
--- NOTE | 2019-05-28 22:15 | History and Physical Report ---
History of Present Illness Date of examination: 05/28/19 Date of admission: 05/28/19 17:40 Chief complaint: AMS and weakness History of present illness: 78-year-old -[place] female with history of hypertension, diabetes, CVA, asthma and dementia who presents to [facility] with complaints of generalized weakness and altered mental status. Patient's family is present at bedside and have assisted in providing history. Family suspicious that patient still has urinary tract infection (despite being treated with oral antibiotics), which is contributing to her altered mental status and generalized weakness. Family states that patient has been displaying generalized weakness over the past week. More recently over the past 2 to 3 days family also noticed that her mentation is altered. According to family patient had right facial droop which has since resolved. Additionally family complains that patient has not been sleeping well for the past few days, and they are concerned this too is contributing to her AMS. At the time of my examination patient is sitting up in bed awake, alert and oriented x3. She is able to maintain conversation and answer questions appropriately. She has no complaints at this time. Denies nausea, vomiting, fever, emesis, recent fall, chest pain, shortness of breath, dysuria, hematuria, headache, visual disturbances, or recent sick contacts. Review of medical record shows patient was admitted to [facility] psych in March 2019 and treated for psychosis. At this time she denies SI/HI. We will admit for further evaluation and treatment. Given patient's history of psychosis and dementia will consult mental health for eval. Past History Past Medical History: diabetes, hypertension, stroke, other (Dementia, asthma) Past Surgical History: tonsillectomy Social history: single, Lives alone (Family checks in on her). denies: smoking Family history: no significant family history Medications and Allergies Allergies Allergy/AdvReac Type Severity Reaction Status Date / Time aspirin AdvReac Unknown Verified 03/30/19 09:58 FLU VACCINE AdvReac Unknown Uncoded 04/20/15 13:35 Home Medications Medication Instructions Recorded Confirmed Last Taken Type Apixaban [Eliquis] 5 mg PO BID 05/28/19 05/28/19 Unknown History Azilsartan Med/Chlorthalidone 1 each PO QDAY 05/28/19 05/28/19 Unknown History [Edarbyclor 40-12.5 mg Tablet] Donepezil [Aricept] 10 mg PO QDAY 05/28/19 05/28/19 Unknown History Hydroxyzine HCl [hydrOXYzine] 25 mg PO QHS 05/28/19 05/28/19 Unknown History Metoprolol Xl [Metoprolol 25 mg PO BID 05/28/19 05/28/19 Unknown History SUCCINATE ER TAB] Simvastatin 10 mg PO QDAY 05/28/19 05/28/19 Unknown History Sitagliptin Phos/Metformin HCl 1 each PO QDAY 05/28/19 05/28/19 Unknown History [Janumet 50-500 mg Tablet] Venlafaxine [Effexor] 75 mg PO BID 05/28/19 05/28/19 Unknown History amLODIPine [Norvasc] 5 mg PO DAILY 05/28/19 05/28/19 Unknown History Active Meds: Active Medications Acetaminophen (Tylenol) 650 mg PO Q4H PRN PRN Reason: Pain, Mild (1-3) Last Admin: 05/28/19 21:18 Dose: 650 mg Documented by: Albuterol (Proventil) 2.5 mg IH Q3HRT PRN PRN Reason: Shortness Of Breath Apixaban (Eliquis) 5 mg PO BID [facility]; Protocol Last Admin: 05/28/19 21:18 Dose: 5 mg Documented by: Atorvastatin Calcium (Lipitor) 40 mg PO QHS [facility] Last Admin: 05/28/19 21:18 Dose: 40 mg Documented by: Dextrose (D50w (25gm) Syringe) 50 ml IV Q30MIN PRN; Protocol PRN Reason: Hypoglycemia Docusate Sodium (Colace) 100 mg PO BID [facility] Last Admin: 05/28/19 21:18 Dose: 100 mg Documented by: Donepezil HCl (Aricept) 10 mg PO QDAY [facility] Sodium Chloride (Nacl 0.9% 1000 Ml) 1,000 mls @ 75 mls/hr IV DIRECT [facility] Stop: 05/29/19 11:00 Last Admin: 05/28/19 21:18 Dose: 75 mls/hr Documented by: Insulin Human Lispro (Humalog) 0 unit SUB-Q ACHS [facility]; Protocol Miscellaneous Medication (Sitagliptin Phos/Metformin Hcl [Janumet 50-500 Mg Tablet]) 1 each PO QDAY [facility] Nicotine (Habitrol) 14 mg TD QDAY [facility] Ondansetron HCl (Zofran) 4 mg IV Q8H PRN PRN Reason: Nausea And Vomiting Venlafaxine HCl (Effexor) 75 mg PO BID [facility] Last Admin: 05/28/19 21:18 Dose: 75 mg Documented by: Review of Systems All systems: negative Constitutional: fatigue Neurological: weakness, change in mentation Exam - Physical Exam Narrative exam: Physical exam General appearance: Present: No acute distress, awake, alert, oriented x2-3, well-developed, older adult female - EENT Eyes: Present: PERRL, EOM intact ENT: hearing intact, missing teeth - Neck Neck: Present: supple, normal ROM - Respiratory Respiratory effort: Non-labored Respiratory: Clear throughout - Cardiovascular Heart rate: 76 (bpm) Rhythm: Sinus rhythm Heart Sounds: Present: S1 & S2. Absent: rub, click - Extremities Extremities: no ischemia, pulses intact, - Peripheral Assessment Peripheral Pulses: within normal limits - Abdominal General gastrointestinal: Obese, soft, non-tender, normal bowel sounds - Integumentary Integumentary: Present: warm, dry - Musculoskeletal Musculoskeletal: Able to move all extremities, generalized weakness -Neurological Neurological: CN II-XII intact - Psychiatric Psychiatric:cooperative - Constitutional Vitals: Temp Pulse Resp BP Pulse Ox 97.4 F L 68 20 112/61 99 05/28/19 20:15 05/28/19 20:15 05/28/19 20:15 05/28/19 20:15 05/28/19 20:15 DAWNA score - Dawna Score Age > 65: (1) Yes Aspirin use within the Past 7 Days: (0) No 3 or more CAD Risk Factors: (0) No 2 or more Angina events in past 24 hrs: (0) No Known CAD with more than 50% Stenosis: (0) No Elevated Cardiac Markers: (0) No ST Deviation Greater than 0.5mm: (0) No DAWNA Score: 1 Results - Labs CBC & Chem 7: 05/28/19 15:22 05/28/19 15:22 Labs: Laboratory Last Values WBC 9.1 K/mm3 (4.5-11.0) 05/28/19 15:22 RBC 3.63 M/mm3 (3.65-5.03) L 05/28/19 15:22 Hgb 11.6 gm/dl (10.1-14.3) 05/28/19 15: Hct 34.4 % (30.3-42.9) 05/28/19 15: MCV 95 fl (79-97) 05/28/19 15: MCH 32 pg (28-32) 05/28/19 15: MCHC 34 % (30-34) 05/28/19 15: RDW 14.5 % (13.2-15.2) 05/28/19 15: Plt Count 274 K/mm3 (140-440) 05/28/19 15: Lymph % (Auto) 19.3 % (13.4-35.0) 05/28/19 15: Jay % (Auto) 7.0 % (0.0-7.3) 05/28/19: Eos % (Auto) 0.8 % (0.0-4.3) 05/28/19 15: Baso % (Auto) 0.6 % (0.0-1.8) 05/28/19 15: Lymph # 1.8 K/mm3 (1.2-5.4) 05/28/19 15: Jay # 0.6 K/mm3 (0.0-0.8) 05/28/19: Eos # 0.1 K/mm3 (0.0-0.4) 05/28/19: Baso # 0.1 K/mm3 (0.0-0.1) 05/28/19 15: Seg Neutrophils % 72.3 % (40.0-70.0) H 05/28/19 15: Seg Neutrophils # 6.6 K/mm3 (1.8-7.7) 05/28/19 15: PT 15.8 Sec. (12.2-14.9) H 05/28/19 15: INR 1.24 (0.87-1.13) H 05/28/19 15: APTT 35.4 Sec. (24.2-36.6) 05/28/19 15:22 Sodium 144 mmol/L (137-145) 05/28/19 15:22 Potassium 4.0 mmol/L (3.6-5.0) 05/28/19 15: Chloride 103.5 mmol/L (98-107) 05/28/19 15:22 Carbon Dioxide 27 mmol/L (22-30) 05/28/19 15:22 Anion Gap 18 mmol/L 05/28/19 15:22 BUN 25 mg/dL (7-17) H 05/28/19 15:22 Creatinine 0.9 mg/dL (0.7-1.2) 05/28/19 15:22 Estimated GFR > 60 ml/min 05/28/19 15:22 BUN/Creatinine Ratio 28 % 05/28/19 15:22 Glucose 119 mg/dL (65-100) H 05/28/19 15:22 POC Glucose 86 (70-105) 05/28/19 21:14 Lactic Acid 1.90 mmol/L (0.7-2.0) 05/28/19 20:39 Calcium 9.5 mg/dL (8.4-10.2) 05/28/19 15:22 Total Bilirubin 0.40 mg/dL (0.1-1.2) 05/28/19 15:22 AST 17 units/L (5-40) 05/28/19 15:22 ALT 9 units/L (7-56) 05/28/19 15:22 Alkaline Phosphatase 95 units/L (35-129) 05/28/19 15:22 Total Creatine Kinase 133 units/L (30-135) 05/28/19 15:22 Total Creatine Kinase 143 units/L (30-135) H 05/28/19 15:22 CK-MB (CK-2) 1.7 ng/mL (0.0-4.0) 05/28/19 15:22 CK-MB (CK-2) Rel Index 1.1 (0-4) 05/28/19 15:22 Troponin T < 0.010 ng/mL (0.00-0.029) 05/28/19 15:22 Total Protein 7.6 g/dL (6.3-8.2) 05/28/19 15:22 Albumin 4.0 g/dL (3.9-5) 05/28/19 15:22 Albumin/Globulin Ratio 1.1 % 05/28/19 15:22 Urine Color Straw (Yellow) 05/28/19 19:36 Urine Turbidity Clear (Clear) 05/28/19 19:36 Urine pH 5.0 (5.0-7.0) 05/28/19 19:36 Ur Specific [place] 1.047 (1.003-1.030) H 05/28/19 19:36 Urine Protein <15 mg/dl mg/dL (Negative) 05/28/19 19:36 Urine Glucose (UA) Neg mg/dL (Negative) 05/28/19 19:36 Urine Ketones Tr mg/dL (Negative) 05/28/19 19:36 Urine Blood Neg (Negative) 05/28/19 19:36 Urine Nitrite Neg (Negative) 05/28/19 19:36 Urine Bilirubin Neg (Negative) 05/28/19 19:36 Urine Urobilinogen < 2.0 mg/dL (<2.0) 05/28/19 19:36 Ur Leukocyte Esterase Neg (Negative) 05/28/19 19:36 Urine WBC (Auto) < 1.0 /HPF (0.0-6.0) 05/28/19 19:36 Urine RBC (Auto) < 1.0 /HPF (0.0-6.0) 05/28/19 19:36 Urine Mucus Few /HPF 05/28/19 19:36 - Imaging and Cardiology Imaging and Cardiology: CT angiogram neck: Impression: No significant abnormality CT angiogram head: Impression: Normal CT angiogram of brain MR Brain: FINDINGS: BRAIN / INTRACRANIAL CONTENTS: Mild cerebral and cerebellar atrophy. Mild degree of hippocampal atrophy suggested bilaterally. There are minimal areas of increased signal intensity on FLAIR imaging in the white matter of the cerebral hemispheres. These are nonspecific findings and may be related to microangiopathy (hypertension, diabetes, atherosclerosis), given the patient's age. Otherwise, no acute ischemia, acute hemorrhage, or hydrocephalus. CRANIOCERVICAL JUNCTION: No significant abnormality. VASCULAR FLOW-VOIDS: No significant abnormality. ORBITS: No significant abnormality of visualized orbits. SINUSES / MASTOIDS: No significant abnormality the visualized paranasal sinuses or mastoid air cells. ADDITIONAL FINDINGS: Prominent soft tissue is seen in the roof the nasopharynx, presumably related to reactive adenoidal tissue. Please clinically correlate. IMPRESSION: 1. No focal mass, hemorrhage, hydrocephalus, or acute ischemia. CT Head/Brain: FINDINGS: HEMORRHAGE: No evidence of intracranial hemorrhage or extra-axial fluid collection. EXTRA-AXIAL SPACES: Cortical sulci, sylvian fissures and basilar cisterns have an unremarkable appearance. VENTRICULAR SYSTEM: The ventricular system is of normal size and configuration. CEREBRAL PARENCHYMA: No areas of abnormal brain parenchymal attenuation are identified. There is no indication of recent infarction. MIDLINE SHIFT OR HERNIATION: There is no mass effect. CEREBELLUM / BRAINSTEM: Brainstem and cerebellum have an unremarkable appearance. INTRACRANIAL VESSELS:No abnormalities are identified on this noncontrast head CT. ORBITS: visualized portions of the orbits have an unremarkable appearance. SOFT TISSUES of HEAD: No significant abnormality. CALVARIUM: Evaluation of bone windows reveals no abnormalities. PARANASAL SINUSES / MASTOID AIR CELLS: Paranasal sinuses are free from inflammatory muc osal disease. Mastoid air cells are normally pneumatized. ADDITIONAL FINDINGS: None. IMPRESSION: 1. No acute intracranial abnormality. CXR: FINDINGS: Support devices: None. Heart: Normal. Lungs/Pleura: No acute pulmonary or pleural findings. IMPRESSION: 1. No acute findings. Assessment and Plan Assessment and plan: 78-year-old -[place] female with history of hypertension, diabetes, CVA, asthma and dementia who presents to [facility] with complaints of generalized weakness and altered mental status. TIA R/O CVA -Hx CVA -CT angiogram neck, CT angiogram head, MRI brain, CT head are all negative -Tele-Neurology consulted; recommendations appreciated -Not a candidate for TPA -Echo pending -Neurology consulted -Neuro Checks -PT/OT eval pending -Speech eval Pending -Lipid panel pending -Continue statin, pt has ASA allergy Acute encephalopathy ?? Likely metabolic -CT head negative -Afebrile, no leukocytosis -History of dementia and psychosis -Blood cultures pending -Neuro checks -Mental health consult pending Dehydration -Mild -BUN 25 -Hydrate with IVF -Continue supportive care DM -POC BG monitoring -Continue home anti hyperglycemic meds and SSI coverage prn -HgbA1C pending HTN -Currently borderline hypotensive -Monitor BP -Hold hypertensive meds for now Dementia -Continue Effexor Suspicion for UTI -Recently diagnosed and treated for UTI -UA negative -Urine culture pending -Hold off on antibiotics pending results of culture Hx Asthma -Albuterol PRN DVT PPX -On Heparin Advance Directives: No VTE prophylaxis?: Chemical Plan of care discussed with patient/family: Yes
[2019-05-28] MEDS: INSULIN LISPRO 100 UNIT/ML SUB-Q SCH (22:27)
[2019-05-29 05:01] LABS: Chol/HDL Ratio 2.65 %
[2019-05-29] MEDS: INSULIN LISPRO 100 UNIT/ML SUB-Q SCH ×4 (07:30→22:00)
[2019-05-29] MEDS: DOCUSATE SODIUM 100 MG CAP PO SCH ×2 (09:46→21:59)
[2019-05-29] MEDS: VENLAFAXINE 75 MG TAB PO SCH ×2 (09:46→22:00)
[2019-05-29] MEDS: DONEPEZIL 10 MG TAB PO SCH (09:46)
[2019-05-29] MEDS: APIXABAN 5 MG TAB PO SCH ×2 (09:46→21:59)
[2019-05-29] MEDS: SODIUM CHLORIDE 0.9% 1000 ML 1,000 ML IV SCH (09:50)
[2019-05-29] MEDS ORDERED: METFORMIN HCL PO SCH (10:00)
[2019-05-29] MEDS ORDERED: SITAGLIPTIN PHOS PO SCH (10:00)
[2019-05-29] MEDS ORDERED: NICOTINE 14 MG/24 HR PATCH TD SCH (10:00)
--- NOTE | 2019-05-29 12:00 | Consultation ---
History of Present Illness - Reason for Consult Consult date: 05/29/19 Reason for consult: psychiatric assessment - Chief Complaint Chief complaint: AMS and weakness - History of Present Psychiatric Illness Ms. Sanchez is a 78-year-old -[place] Citizen female, patient was sitting in a chair in her room at bedside. The patient is dressed appropriately for the occasion, she is alert oriented x2, when asked why she was here the patient stated, "I do not know why I am here". The patient is calm cooperative and polite. The patient denies suicidal or homicidal ideations, she denies visual or auditory hallucinations however she states, "my family says I see things all the time" patient denies visual hallucination at this time. The patient report eating and sleeping well. The patient reports that she does get depressed at times, but states, "sometimes I do not remember so I really do not know". The patient is noted with intermittent confusion and forgetfulness. The nurse report no behavioral issues or complaints at this time. The patient is compliant with all care. PAST PSYCHIATRIC HISTORY: Diagnoses: Dementia Suicide attempts or Self-harm behavior denies Prior psychiatric hospitalizations denies Substance Abuse history: Denies Previous psychiatric medications tried: Patient is unsure Outpatient treatment: Yes PAST MEDICAL HISTORY: hypertension, diabetes, CVA, asthma Family Psychiatric History None reported or documented SOCIAL HISTORY Marital Status: Single Living Arrangements: Family Employment Status: Retired Access to guns/weapons: Denies Education: 10th grade History of Abuse: Denies Legal History: Denied ROS: Constitutional: Negative for weight loss ENT: Negative for stridor Respiratory: Negative for cough or hemoptysis All other systems reviewed and are negative MENTAL STATUS General Appearance and Behavior: age appropriate, good eye contact, cooperativ e with questioning and polite Cooperation: Cooperative Psychomotor Behavior: within normal limits Mood: OK Affect and affective range: Congruent with stated mood Thought Process: Fluent/Logical and Goal-directed Thought Content: Within reality Speech: Normal volume and Regular rate and rhythm Intellectual Functioning Average Suicidal Ideation: Denies SI Homicidal Ideation: Denies HI Impulse Control: intact Insight and Judgment: normal insight and judgment Memory: forgetful Attention: Normal Orientation: alert and orientedx2 RECOMMENDATIONS MEDICATIONS: Continue psychiatric medication in chart Risks, benefits and alternatives of medications discussed with the patient, questions answered and consent obtained from patient. PSYCHOTHERAPY: Supportive psychotherapy provided MEDICAL: Per primary team DELIRIUM PRECAUTIONS: Please re-orient patient frequently, keep lights on during the day, and minimize benzodiazepines and opiates as these medications could worsen patient's confusion. OBSTETRICAL TECH: DISPOSITION: Per primary team; no indication for acute inpatient psychiatric hospitalization at this time, will follow until patient is discharged LEGAL STATUS: FOLLOW-UP: Will follow Medications and Allergies Allergies Allergy/AdvReac Type Severity Reaction Status Date / Time aspirin AdvReac Unknown Verified 03/30/19 09:58 FLU VACCINE AdvReac Unknown Uncoded 04/20/15 13:35 Home Medications Medication Instructions Recorded Confirmed Last Taken Type Apixaban [Eliquis] 5 mg PO BID 05/28/19 05/28/19 Unknown History Azilsartan Med/Chlorthalidone 1 each PO QDAY 05/28/19 05/28/19 Unknown History [Edarbyclor 40-12.5 mg Tablet] Donepezil [Aricept] 10 mg PO QDAY 05/28/19 05/28/19 Unknown History Hydroxyzine HCl [hydrOXYzine] 25 mg PO QHS 05/28/19 05/28/19 Unknown History Metoprolol Xl [Metoprolol 25 mg PO BID 05/28/19 05/28/19 Unknown History SUCCINATE ER TAB] Simvastatin 10 mg PO QDAY 05/28/19 05/28/19 Unknown History Sitagliptin Phos/Metformin HCl 1 each PO QDAY 05/28/19 05/28/19 Unknown History [Janumet 50-500 mg Tablet] Venlafaxine [Effexor] 75 mg PO BID 05/28/19 05/28/19 Unknown History amLODIPine [Norvasc] 5 mg PO DAILY 05/28/19 05/28/19 Unknown History Active Meds: Active Medications Acetaminophen (Tylenol) 650 mg PO Q4H PRN PRN Reason: Pain, Mild (1-3) Last Admin: 05/28/19 21:18 Dose: 650 mg Documented by: Albuterol (Proventil) 2.5 mg IH Q3HRT PRN PRN Reason: Shortness Of Breath Apixaban (Eliquis) 5 mg PO BID [facility]; Protocol Last Admin: 05/29/19 09:46 Dose: 5 mg Documented by: Atorvastatin Calcium (Lipitor) 40 mg PO QHS [facility] Last Admin: 05/28/19 21:18 Dose: 40 mg Documented by: Dextrose (D50w (25gm) Syringe) 50 ml IV Q30MIN PRN; Protocol PRN Reason: Hypoglycemia Docusate Sodium (Colace) 100 mg PO BID [facility] Last Admin: 05/29/19 09:46 Dose: 100 mg Documented by: Donepezil HCl (Aricept) 10 mg PO QDAY [facility] Last Admin: 05/29/19 09:46 Dose: 10 mg Documented by: Insulin Human Lispro (Humalog) 0 unit SUB-Q ACHS [facility]; Protocol Last Admin: 05/29/19 07:30 Dose: Not Given Documented by: Miscellaneous Medication (Sitagliptin Phos/Metformin Hcl [Janumet 50-500 Mg Tablet]) 1 each PO QDAY [facility] Ondansetron HCl (Zofran) 4 mg IV Q8H PRN PRN Reason: Nausea And Vomiting Venlafaxine HCl (Effexor) 75 mg PO BID [facility] Last Admin: 05/29/19 09:46 Dose: 75 mg Documented by: Mental Status Exam - Vital signs Last Vital Signs Temp 98.5 F 05/29/19 07:25 Pulse 67 05/29/19 07:25 Resp 18 05/29/19 07:25 BP 107/60 05/29/19 07:25 Pulse Ox 95 05/29/19 07:25 Results Result Diagrams: 05/28/19 15:22 05/28/19 15:22 Abnormal lab results 05/28/19 05/28/19 05/28/19 Range/Units 15:22 15:22 15:22 RBC 3.63 L (3.65-5.03) M/mm3 Seg Neutrophils % 72.3 H (40.0-70.0) % PT 15.8 H (12.2-14.9) Sec. INR 1.24 H (0.87-1.13) BUN 25 H (7-17) mg/dL Glucose 119 H (65-100) mg/dL POC Glucose (70-105) Hemoglobin A1c (4-6) % Total Creatine Kinase (30-135) units/L HDL Cholesterol (40-59) mg/dL Ur Specific [place] (1.003-1.030) 05/28/19 05/28/19 05/29/19 Range/Units 15:22 19:36 03:31 RBC (3.65-5.03) M/mm3 Seg Neutrophils % (40.0-70.0) % PT (12.2-14.9) Sec. INR (0.87-1.13) BUN (7-17) mg/dL Glucose (65-100) mg/dL POC Glucose (70-105) Hemoglobin A1c 7.1 H (4-6) % Total Creatine Kinase 143 H (30-135) units/L HDL Cholesterol (40-59) mg/dL Ur Specific [place] 1.047 H (1.003-1.030) 05/29/19 05/29/19 05/29/19 Range/Units 03:31 07:35 11:54 RBC (3.65-5.03) M/mm3 Seg Neutrophils % (40.0-70.0) % PT (12.2-14.9) Sec. INR (0.87-1.13) BUN (7-17) mg/dL Glucose (65-100) mg/dL POC Glucose 134 H 243 H (70-105) Hemoglobin A1c (4-6) % Total Creatine Kinase (30-135) units/L HDL Cholesterol 38 L (40-59) mg/dL Ur Specific [place] (1.003-1.030) All other labs normal.
--- NOTE | 2019-05-29 14:56 | Consultation ---
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 Her sister is her buncher hand, and history is provided by the sister. The sister states that the patient has had a chronic history of about 1 to 2 years of dementia as well as hallucinations. The patient at baseline frequently has visual hallucinations involving animals and people, and sister also describes what is possible delusions. Over the past week, the patient had generalized weakness, and was not eating much. Her sister took her to a physician, and she was found to have a UTI, and was started on antibiotics. As the patient was not having significant improvement, she was brought to [facility] for further evaluation. In the emergency room, she was found to have right facial droop, however her sister states that this is been chronic since her stroke. The patient reportedly has not been sleeping much at all over the past 1 to 2 weeks, and only sleeps around 2 to 3 hours/day, if even that. The sister states that the patient had had increased hallucinations over the past 1 to 2 weeks, and was also getting somewhat more irritable. In regards to her dementia at baseline, the patient does have difficulty with some recent and remote memories. She is followed by her primary neurologist, who manages her dementia. 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 denies: smoking Family history: no significant family history Medications and Allergies Allergies Allergy/AdvReac Type Severity Reaction Status Date / Time aspirin AdvReac Unknown Verified 03/30/19 09:58 FLU VACCINE AdvReac Unknown Uncoded 04/20/15 13:35 Home Medications Medication Instructions Recorded Confirmed Last Taken Type Apixaban [Eliquis] 5 mg PO BID 05/28/19 05/28/19 Unknown History Azilsartan Med/Chlorthalidone 1 each PO QDAY 05/28/19 05/28/19 Unknown History [Edarbyclor 40-12.5 mg Tablet] Hydroxyzine HCl [hydrOXYzine] 25 mg PO QHS 05/28/19 05/28/19 Unknown History Metoprolol Xl [Metoprolol 25 mg PO BID 05/28/19 05/28/19 Unknown History SUCCINATE ER TAB] Simvastatin 10 mg PO QDAY 05/28/19 05/28/19 Unknown History Sitagliptin Phos/Metformin HCl 1 each PO QDAY 05/28/19 05/28/19 Unknown History [Janumet 50-500 mg Tablet] Venlafaxine [Effexor] 75 mg PO BID 05/28/19 05/28/19 Unknown History amLODIPine [Norvasc] 5 mg PO DAILY 05/28/19 05/28/19 Unknown History donepeziL [Aricept] 10 mg PO QDAY 05/28/19 05/28/19 Unknown History Active Meds: Active Medications Acetaminophen (Tylenol) 650 mg PO Q4H PRN PRN Reason: Pain, Mild (1-3) Last Admin: 05/28/19 21:18 Dose: 650 mg Documented by: Albuterol (Proventil) 2.5 mg IH Q3HRT PRN PRN Reason: Shortness Of Breath Apixaban (Eliquis) 5 mg PO BID [facility]; Protocol Last Admin: 05/29/19 09:46 Dose: 5 mg Documented by: Atorvastatin Calcium (Lipitor) 40 mg PO QHS [facility] Last Admin: 05/28/19 21:18 Dose: 40 mg Documented by: Dextrose (D50w (25gm) Syringe) 50 ml IV Q30MIN PRN; Protocol PRN Reason: Hypoglycemia Docusate Sodium (Colace) 100 mg PO BID [facility] Last Admin: 05/29/19 09:46 Dose: 100 mg Documented by: Donepezil HCl (Aricept) 10 mg PO QDAY [facility] Last Admin: 05/29/19 09:46 Dose: 10 mg Documented by: Insulin Human Lispro (Humalog) 0 unit SUB-Q ACHS [facility]; Protocol Last Admin: 05/29/19 07:30 Dose: Not Given Documented by: Miscellaneous Medication (Sitagliptin Phos/Metformin Hcl [Janumet 50-500 Mg Tablet]) 1 each PO QDAY [facility] Ondansetron HCl (Zofran) 4 mg IV Q8H PRN PRN Reason: Nausea And Vomiting Venlafaxine HCl (Effexor) 75 mg PO BID [facility] Last Admin: 05/29/19 09:46 Dose: 75 mg Documented by: Review of Systems All systems: negative Psychiatric: change in sleep habits, sleep disturbances, hallucinations, irritability Physical Examination - Vital Signs Vital Signs: Vital Signs Temp Pulse Resp BP Pulse Ox 98.1 F 91 H 18 120/69 96 05/28/19 15:06 05/28/19 15:06 05/28/19 15:06 05/28/19 15:06 05/28/19 15:06 - Physical Exam Narrative exam: Patient is alert, awake, oriented to self/year/minus month/age, follows 2-step commands. PERRL, EOMI, VFF, tongue midline, bilaterally intact to LT, Right NLF noted which is baseline. RUE 4/5, b/l LE 4/5, LUE 5/5 (which is baseline strength). Bilaterally intact light touch. Bilaterally intact to FTN and HTS. 3+ reflexes on RUE/RLE, 2+ on LUE/LLE. - Constitutional General appearance: comfortable - EENT EENT: Present: ATNC, PERRL, mucous membranes moist, hearing intact, vision intact - Respiratory Respiratory: Present: lungs clear, normal breath sounds - Cardiovascular Cardiovascular: Present: regular rate, normal S1, normal S2 Extremities: Present: no clubbing, cyanosis, no inflammation - Gastrointestinal Gastrointestinal: Present: normoactive bowel sounds, soft, non-tender - Integumentary Integumentary: Present: normal - Musculoskeletal Musculoskeletal: Present: no fluid collection - Psychiatric Psychiatric: Present: mood/affect appropriate Results - Laboratory Findings CBC and BMP: 05/28/19 15:22 05/28/19 15:22 Abnormal Lab Findings: Abnormal Labs 05/28/19 05/28/19 05/28/19 15:22 15:22 15:22 RBC 3.63 L Seg Neutrophils % 72.3 H PT 15.8 H INR 1.24 H BUN 25 H Glucose 119 H POC Glucose Hemoglobin A1c Total Creatine Kinase HDL Cholesterol Ur Specific [place] 05/28/19 05/28/19 05/29/19 15:22 19:36 03:31 RBC Seg Neutrophils % PT INR BUN Glucose POC Glucose Hemoglobin A1c 7.1 H Total Creatine Kinase 143 H HDL Cholesterol Ur Specific [place] 1.047 H 05/29/19 05/29/19 05/29/19 03:31 07:35 11:54 RBC Seg Neutrophils % PT INR BUN Glucose POC Glucose 134 H 243 H Hemoglobin A1c Total Creatine Kinase HDL Cholesterol 38 L Ur Specific [place] Assessment and Plan Patient is a 78-year-old woman with a history of dementia, hypertension, hyperlipidemia, diabetes, asthma, history of psychosis, 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 According the patient's clinical findings, it is possible that the patient has dementia with Lewy bodies, or may have psychiatric disorder related symptoms, as the patient has a history of psychosis. It is possible that her ongoing hallucinations and delusions are related to psychiatric disorder. Plan: 1. Increased hallucinations/delusions, sleep deprivation: -Patient noted to have decreased sleep over the past 1 to 2 weeks, and is only sleeping between 1 to 3 hours a day, if even that. This is likely due to underlying psychiatric disorder, and sleep deprivation may be contributing significantly to worsening of hallucinations as well as worsening of mental status from baseline. -MRI brain: No acute abnormality. -CT head: No acute abnormality. -It was clarified with the patient's sister, that at baseline, she does have mild right facial droop, as well as right-sided weakness, and the patient is currently at baseline. It was not felt by the sister that she had any acute change in her neurologic symptoms. Of note, her sister is her buncher hand currently. -CTA head and neck: No significant stenosis. -Echocardiogram: Pending. -Continue Eliquis, as this is her home regimen. -Continue statin. Goal LDL less than 70. Current LDL 56. -Telemetry monitoring while in house. -Recommend PT/OT/ST -DVT prophylaxis: Recommend Lovenox. -Recommend BP target of normotension, as no evidence of acute infarct on MRI. -Recommend further management of hallucinations and delusions per psychiatry team. -Will sign off. Please call with any questions. Thank you for allowing me to take part in the care of this patient. Semaj Dangelo MD Neurology
--- NOTE | 2019-05-29 18:41 | Progress Note ---
Assessment and Plan TIA -MR Brain ---Negativefor acute infarct Per Neuro-- Increased hallucinations/delusions, sleep deprivation: -Patient noted to have decreased sleep over the past 1 to 2 weeks, and is only sleeping between 1 to 3 hours a day, if even that. This is likely due to underlying psychiatric disorder, and sleep deprivation may be contributing significantly to worsening of hallucinations as well as worsening of mental status from baseline. Acute encephalopathy -Mental health consult appreciated Needs outpatient Psychiatry follow up Patient able to make a conversation Dehydration Improved DM -POC BG monitoring -Continue home anti hyperglycemic meds and SSI coverage prn HTN -BP stablwe Dementia -Continue Effexor Suspicion for UTI -Recently diagnosed and treated for UTI -UA negative -Urine culture pending -Hold off on antibiotics pending results of culture Hx Asthma -Albuterol PRN DVT PPX -On Heparin Subjective Date of service: 05/29/19 Principal diagnosis: AMS and generalized weakness 1 week Interval history: 78-year-old -[place] female with history of hypertension, diabetes, CVA, asthma and dementia who presents to [facility] ED with complaints of generalized weakness and altered mental status. Patient's family is present at bedside and have assisted in providing history. Family suspicious that patient still has urinary tract infection (despite being treated with oral antibiotics), which is contributing to her altered mental status and generalized weakness. Family states that patient has been displaying generalized weakness over the past week. More recently over the past 2 to 3 days family also noticed that her mentation is altered. According to family patient had right facial droop which has since resolved. Additionally family complains that patient has not been sleeping well for the past few days, and they are concerned this too is contributing to her AMS. Patient is sitting up in bed awake, alert and oriented x3. She is able to maintain conversation and answer questions appropriately. She has no complaints at this time. Denies nausea, vomiting, fever, emesis, recent fall, chest pain, shortness of breath, dysuria, hematuria, headache, visual disturbances No homicidal or suicidal thoughts.Daughter at bedside. Objective - Constitutional Vitals: Vital Signs - 12hr 05/29/19 05/29/19 07:25 14:08 Temperature 98.5 F 99.2 F Pulse Rate 67 69 Respiratory 18 18 Rate Blood Pressure 107/60 100/58 O2 Sat by Pulse 95 95 Oximetry General appearance: Present: no acute distress, well-nourished - EENT Eyes: PERRL, EOM intact ENT: hearing intact, clear oral mucosa Ears: bilateral: normal - Neck Neck: supple, normal ROM - Respiratory Respiratory effort: normal Respiratory: bilateral: CTA - Breasts Breasts: normal - Cardiovascular Heart rate: 78 Rhythm: regular Heart Sounds: Present: S1 & S2. Absent: gallop, rub Extremities: pulses intact, No edema, normal color, Full ROM - Gastrointestinal General gastrointestinal: Present: soft, non-tender, non-distended, normal bowel sounds - Genitourinary Female genitourinary: normal - Integumentary Integumentary: clear, warm, dry - Musculoskeletal Musculoskeletal: 1, strength equal bilaterally - Neurologic Neurologic: moves all extremities - Psychiatric Psychiatric: memory intact, appropriate mood/affect, intact judgment & insight - Allied health notes Allied health notes reviewed: nursing, case management - Labs CBC & Chem 7: 05/28/19 15:22 05/28/19 15:22 Labs: Abnormal lab results 05/28/19 05/29/19 05/29/19 Range/Units 19:36 03:31 03:31 POC Glucose (70-105) Hemoglobin A1c 7.1 H (4-6) % HDL Cholesterol 38 L (40-59) mg/dL Ur Specific [place] 1.047 H (1.003-1.030) 05/29/19 05/29/19 Range/Units 07:35 11:54 POC Glucose 134 H 243 H (70-105) Hemoglobin A1c (4-6) % HDL Cholesterol (40-59) mg/dL Ur Specific [facility] (1.003-1.030)
--- NOTE | 2019-05-29 18:42 | Discharge Summary ---
Providers - Providers Date of Admission: 05/28/19 17:40 Date of discharge: 05/30/19 Attending physician: DERRICK ALVA 05/28/19 Consult to Physician [CONS] Routine Comment: Consulting Provider: DAWN GIRARD Physician Instructions: Reason For Exam: neuro deficits ??r/o cva 05/28/19 20:34 Consult to Case Management [CONS] Routine Services Needed at Discharge: Home Health Services Notified:: BONNIE Occupational Therapy Evaluate and Treat [CONS] Routine Comment: Reason For Exam: Neuro deficits Physical Therapy Evaluation and Treat [CONS] Routine Comment: Reason For Exam: Neuro deficits 05/28/19 22:42 Consult to Mental Health [CONS] Routine Reason For Exam: hx dementia and psychosis. need eval Primary care physician: [employer] Hospitalization Condition: Stable Hospital course: 78-year-old -[place] female with history of hypertension, diabetes, CVA, asthma and dementia who presents to [facility] ED with complaints of generalized weakness and altered mental status. Patient's family is present at bedside and have assisted in providing history. Family suspicious that patient still has urinary tract infection (despite being treated with oral antibiotics), which is contributing to her altered mental status and generalized weakness. Family states that patient has been displaying generalized weakness over the past week. More recently over the past 2 to 3 days family also noticed that her mentation is altered. According to family patient had right facial droop which has since resolved. Additionally family complains that patient has not been sleeping well for the past few days, and they are concerned this too is contributing to her AMS. At the time of my examination patient is sitting up in bed awake, alert and oriented x3. She is able to maintain conversation and answer questions appropriately. She has no complaints at this time. Denies nausea, vomiting, fever, emesis, recent fall, chest pain, shortness of breath, dysuria, hematuria, headache, visual disturbances, or recent sick contacts. Review of medical record shows patient was admitted to [facility] psych in March 2019 and treated for psychosis. At this time she denies SI/HI. TIA No acute infarcts Increased hallucinations/delusions, sleep deprivation: -Patient noted to have decreased sleep over the past 1 to 2 weeks, and is only sleeping between 1 to 3 hours a day, if even that. This is likely due to underlying psychiatric disorder, and sleep deprivation may be contributing significantly to worsening of hallucinations as well as worsening of mental status from baseline. Psychosis recommendations: RECOMMENDATIONS MEDICATIONS: Continue psychiatric medication in chart Risks, benefits and alternatives of medications discussed with the patient, questions answered and consent obtained from patient. PSYCHOTHERAPY: Supportive psychotherapy provided MEDICAL: Per primary team DELIRIUM PRECAUTIONS: Please re-orient patient frequently, keep lights on during the day, and minimize benzodiazepines and opiates as these medications could worsen patient's confusion. MASTER TECHNICIAN: DISPOSITION: Per primary team; no indication for acute inpatient psychiatric hospitalization at this time, will follow until patient is discharged Acute encephalopathy Resolved -Mental health consult appreciated Needs outpatient Psychiatry follow up Patient able to make a conversation Dehydration Improved DM -BG monitoring -Continue home anti hyperglycemics HTN -BP stable Dementia -Continue Effexor F/u with posychiatry--DR Jing CAVANAUGH Psychiatrist Disposition: DC/TX-06 HOME UNDER HOME [facility] Core Measure Documentation - Palliative Care Palliative Care/ Comfort Measures: Not Applicable - Core Measures Any of the following diagnoses?: none Exam - Constitutional Vitals: Temp Pulse Resp BP Pulse Ox 99.2 F 69 18 100/58 95 05/29/19 14:08 05/29/19 14:08 05/29/19 14:08 05/29/19 14:08 05/29/19 14:08 General appearance: Present: no acute distress, well-nourished - EENT Eyes: Present: PERRL ENT: hearing intact, clear oral mucosa - Neck Neck: Present: supple, normal ROM - Respiratory Respiratory effort: normal Respiratory: bilateral: CTA - Cardiovascular Heart rate: 78 Rhythm: regular Heart Sounds: Present: S1 & S2. Absent: rub, click - Extremities Extremities: pulses symmetrical, No edema Peripheral Pulses: within normal limits - Abdominal General gastrointestinal: Present: soft, non-tender, non-distended, normal bowel sounds Female genitourinary: Present: normal - Integumentary Integumentary: Present: clear, warm, dry - Musculoskeletal Musculoskeletal: gait normal, strength equal bilaterally - Psychiatric Psychiatric: appropriate mood/affect, intact judgment & insight - Neurologic Neurologic: CNII-XII intact, moves all extremities Plan Activity: no restrictions Diet: low salt, diabetic Follow up with: PRIMARY CARE, [Primary Care Provider] - 3-5 Days PHILIPP NAGEL MD [Referring] - 7 Days
[2019-05-29] MEDS: ACETAMINOPHEN 325 MG TAB PO PRN (20:11)
--- NOTE | 2019-05-30 07:36 | Event Note ---
Date: 05/30/19 Discharge Summary Addendum. Patient did not leave the hospital yesterday, 05/29/2019. Patient was seen and examined. Gen: WDWN, NAD, Awake, Alert, Orientated x 3 HEENT: NCAT, EOMI, PERRL, OP Clear Neck: supple, no adenopathy, no thyromegaly, no JVD CVS/Heart: RRR, normal S1S2, pulses present bilaterally Chest/Lungs: CTA B, Symmetrical chest expansion, good air entry bilaterally GI/Abdomen: soft, NTND, good bowel sounds, no guarding or rebound /Bladder: no suprapubic tenderness, no CVA or paraspinal tenderness Extermity/Skin: no c/c/e, no obvious rash MSK: FROM x 4, slight right residual 4/5 strength Neuro: CN 2-12 grossly intact, no new focal deficits Psych: calm Patient is a 78 yo woman with a history dementia with behavior disorder, hypertension, hyperlipidemia, T2DM, asthma, stroke with residual right sided weakness and current treatment for UTI who presented to [facility] ED with AMS with increased hallucinations and delusions from baseline, and increased irritability. According the patient's clinical findings, it is possible that the patient has dementia with Lewy bodies, or may have psychiatric disorder related symptoms, as the patient has a history of psychosis. It is possible that her ongoing hallucinations and delusions are related to psychiatric disorder. Discharge Diagnoses: Acute metabolic encephalopathy, poa: due to UTI, constipation, insomnia which worsened Dementia UTI, prior to arrival was taking abx prior to admission Rule out TIA/CVA Advance Dementia with behavior disturbances h/o CVA on Eliquis Dehydration Constipation T2DM Hypertension F/u with posychiatry--DR Jing CAVANAUGH Psychiatrist Disposition: DC/TX-[address] [facility] time of discharge 33 minutes
[2019-05-30 08:14] VITALS: BP 115/63
[2019-05-30] MEDS: INSULIN LISPRO 100 UNIT/ML SUB-Q SCH ×2 (08:30→12:37)
[2019-05-30] MEDS: APIXABAN 5 MG TAB PO SCH (10:07)
[2019-05-30] MEDS: VENLAFAXINE 75 MG TAB PO SCH (10:08)
[2019-05-30] MEDS: DOCUSATE SODIUM 100 MG CAP PO SCH (10:08)
[2019-05-30] MEDS: DONEPEZIL 10 MG TAB PO SCH (10:08)
== END 2019-05-30 14:30 | disposition home health service (06) ==
LOC: ED 14:52 → 2B-ACE 17:40
PROVIDERS: ADMIT Internal Medicine; ATTEND Internal Medicine
DX: R41.82 Altered mental status, unspecified (principal); I10 Essential (primary) hypertension; E11.9 Type 2 diabetes mellitus without complications; G93.40 Encephalopathy, unspecified; E86.0 Dehydration; J45.909 Unspecified asthma, uncomplicated; F02.80 Dementia in other diseases classified elsewhere, unspecified severity, without behavioral disturbance, psychotic disturbance, mood disturbance, and anxiety; Z86.73 Personal history of transient ischemic attack (TIA), and cerebral infarction without residual deficits; Z90.49 Acquired absence of other specified parts of digestive tract
CPT/HCPCS: 36415; 70450; 70496; 70498; 70551; 71045; 80053; 80061; 81001; 82140; 82550; 82553; 82962; 83036; 84484; 85025; 85610; 85730; 87040; 87086; 87116; 93005; 93010; 93306; 96361; 96365; 96372; 97116; 97162; 97165; 97530; 99285; A9270; G0378; J7030; Q9967; J0692; J1815